=== PATIENT | male | born 1950 | race Caucasian/White ===

== ENCOUNTER → 2016-07-14 | Outpatient (CLI) | payer BC ==
[2016-07-14 10:47] LABS: ALT 70 U/L (21-72); AST 47 U/L (17-59); Cholesterol 194 mg/dL (<200); HDL Cholesterol 71 mg/dL (40-60); Triglycerides 113 mg/dL (<150)
== END | disposition home or self-care (01) ==
LOC: LABWHC1 09:29
PROVIDERS: ATTEND Internal Medicine Interventional Cardiology
DX: E78.2 Mixed hyperlipidemia (principal)
CPT/HCPCS: 36415; 80061; 84450; 84460

== ENCOUNTER 2017-01-06 11:57 | Emergency (ER) | payer BC, MEDICARE ==
[2017-01-06 12:23] VITALS: TEMP 97.9
[2017-01-06] MEDS ORDERED: SODIUM CHLORIDE 0.9% 1,000 ML IV STA (12:34)
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
[2017-01-06 13:26] LABS: Basophils % (A) 0 %; CH 30.8; CHCM 32.2; Eosinophils # (A) 0.1 k/uL (0-0.7); Eosinophils % (A) 2 %; HCT 48.7 % (39.0-53.0); HDW 2.25; HGB 15.7 gm/dL (13.0-17.5); Luc # (Auto) 0.19; Luc % (Auto) 3; Lymphocytes # (A) 2.1 k/uL (1.0-4.8); Lymphocytes % (A) 29 %; MCH 30.9 pg (25.0-35.0); MCHC 32.1 g/dL (31.0-37.0); MCV 96.1 fL (80.0-100.0); Mean Platelet Volume 7.3; Monocytes # (A) 0.5 k/uL (0-1.0); Monocytes % (A) 7 %; Neutrophils # (A) 4.4 k/uL (1.3-7.7); Neutrophils % (A) 60 %; RBC 5.07 m/uL (4.30-5.90); RDW 13.5 % (11.5-15.5); WBC 7.3 k/uL (3.8-10.6); WBC (Perox) 6.93
[2017-01-06 13:32] LABS: INR 2.3 (<1.2); Prothrombin Time 21.7 sec (9.0-12.0)
--- NOTE | 2017-01-06 13:32 | XR ---
EXAMINATION TYPE: XR elbow complete LT DATE OF EXAM: 01/06/2017 COMPARISON: NONE HISTORY: 66-year-old male with redness, pain, swelling posteriorly TECHNIQUE: 3 views FINDINGS: No acute fracture, subluxation, or dislocation. No elbow joint effusion seen. There is posterior soft tissue swelling noted. IMPRESSION: 1. No acute osseous abnormality seen. 2. Nonspecific posterior soft tissue swelling could represent contusion or cellulitis.
[2017-01-06 13:37] LABS: ALT 59 U/L (21-72); AST 25 U/L (17-59); Alkaline Phosphatase 63 U/L (38-126); Anion Gap 10 mmol/L; Blood Urea Nitrogen 16 mg/dL (9-20); C Reactive Protein 32.9 mg/L (<10.0); Calcium 10.1 mg/dL (8.4-10.2); Carbon Dioxide 27 mmol/L (22-30); Chloride 103 mmol/L (98-107); Glucose 135 mg/dL (74-99); Non-African American GFR(MDRD) >60 (>60 ml/min/1.73 sqM); Potassium 4.9 mmol/L (3.5-5.1); Sodium 140 mmol/L (137-145); Total Bilirubin 1.8 mg/dL (0.2-1.3); Total Protein 7.4 g/dL (6.3-8.2)
[2017-01-06 14:29] LABS: Erythrocyte Sedimentation Rate 6 mm/hr (0-15)
[2017-01-06] MEDS ORDERED: ceFAZolin 1,000 MG in DEXTROSE/WATER 1 50ML.BAG IVPB STA (14:45)
--- NOTE | 2017-01-06 15:24 | US ---
EXAMINATION TYPE: US venous doppler duplex UE LT DATE OF EXAM: 01/06/2017 COMPARISON: NONE CLINICAL HISTORY: 66-year-old male Pain. SIDE PERFORMED: Left FINDINGS: Grayscale, color doppler, spectral doppler imaging performed of the deep veins of the upper extremiti es. There is normal flow, compressibility and vascular waveforms. The internal jugular, subclavian, axillary, brachial, basilic, cephalic, and compared radial and ulnar veins were assessed. Left Arm: Negative for DVT IMPRESSION: No evidence for DVT within the left upper extremity.
[2017-01-06 16:02] VITALS: BP 178/95; PULSE 86; RESP 16
== END 2017-01-06 16:02 | disposition home or self-care (01) ==
LOC: EC 11:57
DX: L03.114 Cellulitis of left upper limb (principal); E11.9 Type 2 diabetes mellitus without complications; E78.5 Hyperlipidemia, unspecified; I10 Essential (primary) hypertension; I25.2 Old myocardial infarction; I48.0 Paroxysmal atrial fibrillation; Z95.5 Presence of coronary angioplasty implant and graft; Z87.891 Personal history of nicotine dependence; Z86.711 Personal history of pulmonary embolism; Z79.899 Other long term (current) drug therapy; Z88.8 Allergy status to other drugs, medicaments and biological substances
CPT/HCPCS: 99284; 36415; 80053; 85652; 83605; 85025; 85610; 86140; 87040; 73080; 93971; 96374; 96361 ×2; J0690

== ENCOUNTER 2017-06-30 17:57 | Observation (INO) | payer BC, MEDICARE ==
[2017-06-30] MEDS ORDERED: IBUPROFEN 600 MG TAB PO STA (18:39)
[2017-06-30] MEDS ORDERED: ACETAMINOPHEN TAB 500 MG TAB PO STA (18:39)
[2017-06-30] MEDS ORDERED: IPRATROPIUM-ALBUTEROL 3 ML NEB INHALATION STA (18:39)
[2017-06-30] MEDS ORDERED: SODIUM CHLORIDE 0.9% 1,000 ML IV STA ×2 (18:39→19:50)
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
[2017-06-30] MEDS ORDERED: METOPROLOL TARTRATE 5 MG/5 ML VIAL IVP STA (19:21)
[2017-06-30 19:26] LABS: Appearance,Urine Clear (Clear); Bacteria,Urine Rare /hpf; Bilirubin,Urine Negative (Negative); Blood,Urine Negative (Negative); Color,Urine Yellow; Glucose,Urine (UA) Trace (Negative); Hyaline Casts,Urine 1 /lpf (0-2); Ketones,Urine Negative (Negative); Leukocyte Esterase,Urine Trace (Negative); Mucus,Urine Rare /hpf; Nitrite,Urine Negative (Negative); PH, Urine 6.5 (5.0-8.0); Protein,Urine Trace (Negative); RBC,Urine 3 /hpf (0-5); Specific Gravity,Urine 1.021 (1.001-1.035); Squamous Epithelial Cell,Urine <1 /hpf (0-4); WBC,Urine 2 /hpf (0-5)
[2017-06-30 19:29] LABS: Basophils % (A) 0 %; Eosinophils # (A) 0.1 k/uL (0-0.7); Eosinophils % (A) 1 %; HCT 45.3 % (39.0-53.0); HGB 15.6 gm/dL (13.0-17.5); Lymphocytes # (A) 1.1 k/uL (1.0-4.8); Lymphocytes % (A) 22 %; MCH 30.1 pg (25.0-35.0); MCHC 34.4 g/dL (31.0-37.0); MCV 87.6 fL (80.0-100.0); Mean Platelet Volume 7.7; Monocytes # (A) 0.3 k/uL (0-1.0); Monocytes % (A) 6 %; Neutrophils # (A) 3.4 k/uL (1.3-7.7); Neutrophils % (A) 69 %; Platelet Count 150 k/uL (150-450); RBC 5.18 m/uL (4.30-5.90); RDW 13.7 % (11.5-15.5); WBC 4.8 k/uL (3.8-10.6)
[2017-06-30 19:33] LABS: Albumin 4.2 g/dL (3.5-5.0); Calcium 9.8 mg/dL (8.4-10.2); Potassium 4.4 mmol/L (3.5-5.1); Total Bilirubin 1.5 mg/dL (0.2-1.3); Total Protein 7.2 g/dL (6.3-8.2)
[2017-06-30 19:35] LABS: Partial Thromboplastin Time 28.7 sec (22.0-30.0)
[2017-06-30 19:41] LABS: Creatine Kinase 67 U/L (55-170); INR 2.1 (<1.2); Prothrombin Time 19.3 sec (9.0-12.0)
[2017-06-30] MEDS ORDERED: OSELTAMIVIR 75 MG CAP PO STA (19:41)
[2017-06-30] MEDS ORDERED: SODIUM CHLORIDE 0.9% 500 ML IV STA (19:50)
--- NOTE | 2017-06-30 19:51 | XR ---
EXAMINATION TYPE: XR chest 2V DATE OF EXAM: 06/30/2017 COMPARISON: 03/03/2015 HISTORY: Shortness of breath TECHNIQUE: Frontal and lateral views of the chest are obtained. FINDINGS: Scattered senescent parenchymal changes noted. No evidence for infiltrate. No evidence for atelectasis. Heart size is stable. Mediastinal structures are stable and grossly unremarkable. No evidence for hilar prominence. Degenerative changes dorsal spine. IMPRESSION: 1. No evidence for acute pulmonary disease.
[2017-06-30 19:54] LABS: Creatine Kinase MB 0.2 ng/mL (0.0-2.4); Troponin I <0.012 ng/mL (0.000-0.034)
[2017-06-30] MEDS ORDERED: NALOXONE 0.4 MG/ML 1 ML VIAL IV PRN (19:54)
[2017-06-30] MEDS ORDERED: ACETAMINOPHEN TAB 325 MG TAB PO PRN (19:54)
[2017-06-30] MEDS ORDERED: IBUPROFEN 400 MG TAB PO PRN (19:54)
[2017-06-30] MEDS ORDERED: NITROGLYCERIN SL TABS 0.4 MG TAB SUBLINGUAL PRN (19:57)
[2017-06-30] MEDS ORDERED: IPRATROPIUM-ALBUTEROL 3 ML NEB INHALATION PRN (20:07)
[2017-06-30 21:14] LABS: Glucose,Whole Blood 126 mg/dL (75-99)
[2017-06-30 22:21] VITALS: BMI 32.1
--- NOTE | 2017-06-30 23:52 | HP ---
HISTORY AND PHYSICAL DATE OF ADMISSION: 06/30/2017 PRESENTING COMPLAINT: Weak, tired, fever. HISTORY OF PRESENTING COMPLAINT: This is a very pleasant 67-year-old patient of Dr. Espinoza. 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 Chronic stable medical conditions include diabetes, hypertension, hyperlipidemia and coronary artery disease with stent 2 years ago. The patient did have a pulmonary embolism in 2012. Patient yesterday in a short span became rather weak, tired, fever, sweating, cough, headache, rundown. Dizzy, thought he was going to pass out. Heart was racing a bit. In the ER he was found to have a fever of 101.3 and heart was racing up to 130s. Influenza A came back positive. The patient was put on Tamiflu, and I believe Cardiology ordered some IV Lopressor. Patient's is present at the bedside. Patient rather feels tired and exhausted. REVIEW OF SYSTEMS: CONSTITUTIONAL: Weak, tired. Fever, chills. HEENT: None. RESPIRATORY: Cough. CARDIOVASCULAR: Heart racing. GASTROINTESTINAL: None. GENITOURINARY: None. MUSCULOSKELETAL: Achiness in the muscles. DERMATOLOGICAL: None. HEMATOLOGICAL: None. LYMPHATICS: None. PSYCHIATRY: None. NEUROLOGICAL: None. PAST MEDICAL HISTORY: 1. Atrial fibrillation. 2. Diabetes mellitus, type 2. 3. Hypertension. 4. Hyperlipidemia. 5. Myocardial infarction. 6. Coronary artery disease with stent 2 years ago. 7. Pulmonary embolism in 2012. PAST SURGICAL HISTORY: 1. Cholecystectomy. 2. Cardiac catheterization with stent. 3. Open reduction of left ankle fracture. SOCIAL HISTORY: Does not smoke. No alcohol. . FAMILY HISTORY: Pulmonary embolism. Father of a heart attack at age of 53. HOME MEDICATIONS: 1. Pioglitazone 15 mg p.o. daily. 2. Nitrostat 0.4 sublingually q.5 p.r.n. 3. Lopressor 25 p.o. b.i.d. 4. Magnesium oxide 400 mg p.o. daily. 5. Augmentin 1 tablet p.o. q.12. 6. Claritin 10 mg p.o. daily. 7. Coumadin 5 mg p.o. Tuesday, Wednesdays. 8. Metformin ER 500 mg p.o. t.i.d. 9. Coumadin 2.5 mg on Tuesday, Tuesday, , Tuesday, Tuesday. 10.Prinivil 20 mg p.o. daily. 11.Pepcid 40 mg p.o. daily. 12.Vitamin D3 2000 units p.o. daily. 13.Lipitor 20 mg p.o. q.72 hours. 14.Aspirin 81 mg p.o. daily. ALLERGIES: JANUVIA. PHYSICAL EXAMINATION: VITAL SIGNS ON PRESENTATION: Temperature 101.3, pulse 116, respiration 18, blood pressure 148/94, pulse ox 95% on room air. GENERAL APPEARANCE: Well built; BMI 32.1. Sitting up, tired-appearing. EYES: Pupils equal. Conjunctivae normal. HEENT: External appearance of nose and ears normal. Oral cavity normal. NECK: JVD not raised. Mass not palpable. RESPIRATORY: Effort normal. LUNGS: Slightly decreased breath sounds. CARDIOVASCULAR: Heart sounds irregular. No edema. ABDOMEN: Soft, nontender. Liver and spleen not palpable. LYMPHATIC: No lymph node palpable in neck or axillae. PSYCHIATRY: Alert and oriented x3. Mood and affect normal. NEUROLOGICAL: Pupils equal. Cranial nerves grossly intact. Power and sensation grossly intact. INVESTIGATIONS: White count 4.8, hemoglobin 14.6, INR 2.1, potassium 4.4. Troponin negative. Influenza A RNA positive. Chest x-ray reviewed; it shows some scattered infiltrates. EKG shows atrial flutter. ASSESSMENT: 1. Acute influenza A with pneumonitis causing sepsis, present on admission. 2. Persistent atrial flutter with rapid ventricular rate, probably precipitated by acute influenza, uncontrolled on admission. 3. Diabetes mellitus, type 2, chronically on oral hypoglycemic. 4. Essential hypertension. 5. Hyperlipidemia. 6. History of pulmonary embolism in 2012. 7. Coronary artery disease with stent 2 years ago. 8. Obesity; body mass index 32.1. PLAN: Home medications are resumed. Patient is put on Tamiflu. Patient will be given one dose of IV Lopressor per Cardiology, who has been consulted. Patient will be given IV fluids. Care was discussed with the patient and his at the bedside. Questions were answered. MMODL / IJN: [id number] /
[2017-07-01] MEDS ORDERED: IPRATROPIUM-ALBUTEROL 3 ML NEB INHALATION SCH
[2017-07-01] MEDS ORDERED: methylPREDNISolone SOD SUCCI 125 MG/2 ML VIAL IV SCH
[2017-07-01 01:24] LABS: Creatine Kinase 65 U/L (55-170)
[2017-07-01 01:38] LABS: Creatine Kinase MB 0.3 ng/mL (0.0-2.4); Troponin I <0.012 ng/mL (0.000-0.034)
[2017-07-01 05:52] LABS: Glucose,Whole Blood 119 mg/dL (75-99)
[2017-07-01] MEDS: METOPROLOL TARTRATE 25 MG TAB PO SCH ×2 (05:58→16:11)
[2017-07-01] MEDS: metFORMIN 500 MG TAB PO SCH ×3 (05:58→16:11)
[2017-07-01 06:38] LABS: Basophils % (A) 0 %; Eosinophils # (A) 0.1 k/uL (0-0.7); Eosinophils % (A) 2 %; HCT 42.5 % (39.0-53.0); HGB 13.6 gm/dL (13.0-17.5); Lymphocytes # (A) 0.9 k/uL (1.0-4.8); Lymphocytes % (A) 27 %; MCH 29.2 pg (25.0-35.0); MCV 91.1 fL (80.0-100.0); Mean Platelet Volume 7.9; Monocytes # (A) 0.2 k/uL (0-1.0); Monocytes % (A) 8 %; Neutrophils # (A) 1.9 k/uL (1.3-7.7); Neutrophils % (A) 61 %; Platelet Count 129 k/uL (150-450); RBC 4.67 m/uL (4.30-5.90); RDW 13.7 % (11.5-15.5); WBC 3.2 k/uL (3.8-10.6)
[2017-07-01 06:42] LABS: INR 2.1 (<1.2)
[2017-07-01 06:56] LABS: Albumin 3.5 g/dL (3.5-5.0); Calcium 8.9 mg/dL (8.4-10.2); Potassium 4.5 mmol/L (3.5-5.1); Total Bilirubin 1.5 mg/dL (0.2-1.3); Total Protein 6.1 g/dL (6.3-8.2)
[2017-07-01 07:03] LABS: Creatine Kinase 77 U/L (55-170)
[2017-07-01 07:14] LABS: Creatine Kinase MB 0.5 ng/mL (0.0-2.4); Troponin I <0.012 ng/mL (0.000-0.034)
[2017-07-01] MEDS: OSELTAMIVIR 75 MG CAP PO SCH ×2 (07:49→20:41)
[2017-07-01] MEDS: ASPIRIN 81 MG PO SCH (07:49)
[2017-07-01] MEDS: PIOGLITAZONE 15 MG TAB PO SCH (07:50)
[2017-07-01] MEDS: MAGNESIUM OXIDE 400 MG TAB PO SCH (07:50)
[2017-07-01] MEDS: CHOLECALCIFEROL 1,000 UNIT TAB PO SCH (07:50)
[2017-07-01] MEDS: FAMOTIDINE 20 MG TAB PO SCH (07:50)
[2017-07-01] MEDS: LORATADINE 10 MG TAB PO SCH (07:50)
[2017-07-01] MEDS ORDERED: LISINOPRIL 20 MG TAB PO SCH (09:00)
--- NOTE | 2017-07-01 11:44 | CONS ---
CONSULTATION CHIEF COMPLAINT: Atrial fibrillation. This is a 67-year-old gentleman with history of chronic atrial fibrillation, hypertension, dyslipidemia, coronary artery disease and type 2 diabetes who presents to hospital with flu-like illness. He has been having symptoms of fatigue, fever, sweating, cough, dizziness for the last few days. Came to the ER where his influenza A came back positive. He was febrile and he was also in atrial fibrillation with poorly- controlled ventricular rate. Has received Tamiflu and at the time of my evaluation, he feels better. Heart rate is better controlled. He is on Coumadin. PAST MEDICAL HISTORY: Significant for chronic atrial fibrillation, diabetes, hypertension, dyslipidemia, coronary artery disease. PAST SURGICAL HISTORY: Significant for cholecystectomy, repair of the left ankle fracture. SOCIAL HISTORY: Negative for smoking, EtOH abuse, or drug abuse. FAMILY HISTORY: Significant for premature coronary artery disease. MEDICATIONS: At home include Lopressor 25 b.i.d., Claritin, Coumadin, metformin, Prinivil, Pepcid, Lipitor, aspirin, Januvia. REVIEW OF SYSTEMS: HEENT is significant for a runny nose, headache and feeling stuffy. CARDIAC: As described above. RESPIRATORY: Negative. GI: Negative. GENITOURINARY: Negative. ALLERGY/IMMUNOLOGY: Negative. SKIN: Negative. MUSCULOSKELETAL: Significant for arthralgias, fatigue and tiredness. PSYCHIC READER: Negative. PSYCHOSOCIAL: Negative. DERM: Negative. CONSTITUTIONAL: As described above. Rest of the system review is not relevant. On exam, he is comfortable at rest. Heart rate is 80 beats per minute, blood pressure is 132/74, respiratory rate is 18, O2 saturation is 97% on room air. There is no jugular venous distention. Chest exam revealed good air entry bilaterally. Heart exam was of first and second heart sounds. No gallop. Abdomen is soft. Exam of extremities did not reveal edema. Peripheral pulses are felt. LABS: Show that 3 sets of troponins are negative. Creatinine is 1, potassium is 4.5, hemoglobin is normal at 15.6. INR is therapeutic at 2.1. ASSESSMENT: 1. Chronic atrial fibrillation with poorly controlled ventricular rate. 2. Influenza A. 3. Coronary artery disease, status post angioplasty. 4. Hypertension. 5. Diabetes. PLAN: Patient is doing better. Patient is stable to be discharged home. He can keep his outpatient appointment with Dr. Jasso that he has for the first week of July. MMKAYAL / JOSEPN: [id number] /
--- NOTE | 2017-07-01 12:01 | ECHOF ---
Referral Reason:AF w/RVR MEASUREMENTS -------- HEIGHT: 195.6 cm WEIGHT: 124.7 kg BP: 132/74 RVIDd: 2.8 cm (< 3.3) IVSd: 1.4 cm (0.6 - 1.1) LVIDd: 5.3 cm (3.9 - 5.3) LVPWd: 1.3 cm (0.6 - 1.1) IVSs: 2.0 cm LVIDs: 4.1 cm LVPWs: 1.9 cm LA Diam: 5.0 cm (2.7 - 3.8) LAESV Index (A-L): 35.80 ml/m Ao Diam: 3.4 cm (2.0 - 3.7) AV Cusp: 2.3 cm (1.5 - 2.6) MV EXCURSION: 16.659 mm (> 18.000) MV EF SLOPE: 207 mm/s (70 - 150) EPSS: 0.8 cm FINDINGS -------- Atrial fibrillation. This was a technically adequate study. The left ventricular size is normal. There is moderate concentric left ventricular hypertrophy. O verall left ventricular systolic function is mildly impaired with, an EF between 45 - 50 %. Basal i nferior LV wall motion is hypokinetic. Basal inferoseptal LV wall motion is hypokinetic. The right ventricle is normal in size. LA is moderately dilated 34-39 ml/m2 The right atrium is normal in size. The aortic valve is trileaflet and appears structurally normal. Mild mitral annular calcification present. Mild mitral regurgitation is present. The tricuspid valve appears structurally normal. Trace/mild (physiologic) pulmonic regurgitation. The aortic root size is normal. IVC Not well visulized. There is no pericardial effusion. CONCLUSIONS -------- 1. Atrial fibrillation. 2. This was a technically adequate study. 3. The left ventricular size is normal. 4. There is moderate concentric left ventricular hypertrophy. 5. Basal inferior LV wall motion is hypokinetic. 6. Basal inferoseptal LV wall motion is hypokinetic. 7. The right ventricle is normal in size. 8. LA is moderately dilated 34-39 ml/m2 9. The right atrium is normal in size. 10. The aortic valve is trileaflet and appears structurally normal. 11. Mild mitral annular calcification present. 12. Mild mitral regurgitation is present. 13. The tricuspid valve appears structurally normal. 14. Trace/mild (physiologic) pulmonic regurgitation. 15. The aortic root size is normal. 16. IVC Not well visulized. 17. There is no pericardial effusion. [employer] SUPERVISOR: Krista Perez RDCS
[2017-07-01 12:35] LABS: Glucose,Whole Blood 134 mg/dL (75-99)
[2017-07-01] MEDS: WARFARIN 2.5 MG TAB PO SCH (16:11)
[2017-07-01 17:04] LABS: Glucose,Whole Blood 117 mg/dL (75-99)
--- NOTE | 2017-07-01 19:14 | PN ---
PROGRESS NOTE DATE OF SERVICE: 07/01/17. PRESENTING COMPLAINT: Weak, tired. INTERVAL HISTORY: This patient presents with acute influenza A with pneumonitis causing sepsis present on admission and atrial flutter fibrillation. I saw this patient earlier today. Feels a bit better, though still tired, run down. Did eat a bit. Heart rate started to come down. REVIEW OF SYSTEMS: Done for constitutional, cardiovascular, GI, pulmonary; relevant findings as above. CURRENT MEDICATIONS: Reviewed that include Lopressor, Tamiflu, Coumadin. PHYSICAL EXAMINATION: Temperature 99.4, pulse 83, respiratory 18, blood pressure 130/74, pulse ox 97% on room air. GENERAL APPEARANCE: Sitting up, still tired, but shade better than yesterday. EYES: Pupils equal. Conjunctivae normal. HEENT: External nose and ears normal. Oral cavity normal NECK: JVD not raised. Mass not palpable. RESPIRATORY: Effort, lungs slightly decreased breath sounds. CARDIOVASCULAR: Heart sounds irregular. No edema. ABDOMEN: Soft, nontender. Liver and spleen not palpable. PSYCHIATRY: Alert and oriented x3. Mood and affect normal. INVESTIGATIONS: White count 3.2 and 2.1, BUN and creatinine are normal. ASSESSMENT: 1. Acute influenza A with pneumonitis causing sepsis present on admission with some clinical improvement. 2. Persistent atrial flutter fibrillation with rapid ventricular rate, present on admission, now getting better. 3. Diabetes mellitus type 2, chronically on oral hypoglycemic. 4. Essential hypertension. 5. Hyperlipidemia. 6. History of pulmonary embolism in 2012. 7. Coronary artery disease with stents 2 years ago. 8. Obesity; BMI 32.1. PLAN: Continue current medication and treatment plan. Later this evening patient's blood pressure became a bit high and had additional lisinopril in the evening. Earlier care was discussed with the patient. MMODL / IJN: [id number] /
[2017-07-01 20:47] LABS: Glucose,Whole Blood 125 mg/dL (75-99)
[2017-07-02] MEDS: metFORMIN 500 MG TAB PO SCH ×3 (06:47→17:58)
[2017-07-02] MEDS: METOPROLOL TARTRATE 25 MG TAB PO SCH ×2 (06:48→17:57)
[2017-07-02 06:55] LABS: INR 1.8 (<1.2); Prothrombin Time 16.3 sec (9.0-12.0)
[2017-07-02 07:04] LABS: Glucose,Whole Blood 138 mg/dL (75-99)
[2017-07-02] MEDS: PIOGLITAZONE 15 MG TAB PO SCH (09:22)
[2017-07-02] MEDS: LORATADINE 10 MG TAB PO SCH (09:22)
[2017-07-02] MEDS: MAGNESIUM OXIDE 400 MG TAB PO SCH (09:22)
[2017-07-02] MEDS: ASPIRIN 81 MG PO SCH (09:22)
[2017-07-02] MEDS: OSELTAMIVIR 75 MG CAP PO SCH ×2 (09:23→21:08)
[2017-07-02] MEDS: FAMOTIDINE 20 MG TAB PO SCH (09:39)
[2017-07-02 12:13] LABS: Glucose,Whole Blood 155 mg/dL (75-99)
[2017-07-02] MEDS: CHOLECALCIFEROL 1,000 UNIT TAB PO SCH (12:24)
[2017-07-02 16:46] LABS: Glucose,Whole Blood 148 mg/dL (75-99)
[2017-07-02] MEDS: WARFARIN 2.5 MG TAB PO SCH (17:58)
--- NOTE | 2017-07-02 18:30 | PN ---
PROGRESS NOTE DATE OF SERVICE: 07/02/2017 PRESENTING COMPLAINT: Weak, tired. INTERVAL HISTORY: Patient presented with acute influenza A with pneumonitis causing sepsis, present on admission in atrial flutter/fibrillation since yesterday. Patient feeling better, actually walked to the bathroom. Heart rate was slightly up overnight because of weakness. Patient nearly had a fall last night, he states but feeling better this morning. REVIEW OF SYSTEMS: Done for constitutional, cardiovascular, GI, pulmonary; relevant findings as above. CURRENT MEDICATIONS: Reviewed that include Tamiflu, Coumadin, Lopressor 25 mg b.i.d. PHYSICAL EXAMINATION: Temperature 98.4, pulse 83, respiratory 18, blood pressure 130/84, pulse ox 95% on room air. GENERAL APPEARANCE: Propped up in bed, awake, looking better. EYES: Pupils equal, conjunctivae are normal. HEENT: External appearance of nose and ears normal, oral cavity normal. NECK: JVD not raised. Mass not palpable. Respiratory effort increased. Lungs improved air entry. CARDIOVASCULAR: Heart sounds irregular, no edema. ABDOMEN: Soft, nontender. Liver and spleen not palpable. PSYCHIATRY: Alert and oriented x3. Mood and affect normal. INVESTIGATIONS: INR 1.8. Accu-Cheks noted. ASSESSMENT: 1. Acute influenza A with pneumonitis causing sepsis on admission with clinical improvement. 2. Persistent atrial flutter/fibrillation. Heart rate better controlled. 3. Diabetes mellitus type 2, chronically on oral hypoglycemic. 4. Essential hypertension. 5. Hyperlipidemia. 6. History of pulmonary embolism in 2012, chronically on Coumadin. 7. Coronary artery disease with stents 2 years ago. 8. Obesity; body mass index 32.1. PLAN: Continue current medication and treatment plan. Encourage the patient to ambulate. See how he does by tomorrow. MMODL / IJN: [id number] /
[2017-07-02] MEDS ORDERED: LISINOPRIL 20 MG TAB PO SCH (21:00)
[2017-07-02 21:06] LABS: Glucose,Whole Blood 141 mg/dL (75-99)
[2017-07-03 07:35] VITALS: RESP 24
[2017-07-03] MEDS: FAMOTIDINE 20 MG TAB PO SCH (08:42)
[2017-07-03] MEDS: ASPIRIN 81 MG PO SCH (08:43)
[2017-07-03] MEDS: metFORMIN 500 MG TAB PO SCH ×3 (08:43→16:56)
[2017-07-03] MEDS: METOPROLOL TARTRATE 25 MG TAB PO SCH ×2 (08:43→16:55)
[2017-07-03] MEDS: LORATADINE 10 MG TAB PO SCH (08:43)
[2017-07-03] MEDS: MAGNESIUM OXIDE 400 MG TAB PO SCH (08:43)
[2017-07-03] MEDS: OSELTAMIVIR 75 MG CAP PO SCH (08:44)
[2017-07-03] MEDS: PIOGLITAZONE 15 MG TAB PO SCH (08:44)
[2017-07-03] MEDS ORDERED: ATORVASTATIN 20 MG TAB PO SCH (09:00)
[2017-07-03 09:31] LABS: INR 1.7 (<1.2); Prothrombin Time 15.3 sec (9.0-12.0)
[2017-07-03 11:23] LABS: Glucose,Whole Blood 140 mg/dL (75-99)
[2017-07-03] MEDS: CHOLECALCIFEROL 1,000 UNIT TAB PO SCH (11:43)
[2017-07-03 14:46] VITALS: BP 137/72; PULSE 88; TEMP 97
[2017-07-03] MEDS: WARFARIN 2.5 MG TAB PO SCH (16:55)
--- NOTE | 2017-07-04 05:37 | DS ---
DISCHARGE SUMMARY DATE OF ADMISSION: 06/30/17 DATE OF DISCHARGE: July 03, 2017. FINAL DIAGNOSES: 1. Acute influenza with pneumonitis causing sepsis on admission. 2. Persistent atrial flutter fibrillation heart rate uncontrolled on presentation. 3. Diabetes mellitus type 2, chronically on oral hypoglycemic. 4. Essential hypertension. 5. Hyperlipidemia. 6. History of pulmonary embolism chronically on Coumadin. 7. Coronary artery disease with stents 2 years ago. 8. Obesity; BMI 32.1. HOSPITAL COURSE: This patient feeling weak, tired, run down, found to have influenza with pneumonitis responded really well to Tamiflu. Also had persistent atrial flutter fibrillation. did come down and INR was therapeutic. INR was followed. PHYSICAL EXAMINATION: On examination, lungs fair entry. Cardiovascular first and second sounds normal. Patient is up and about. CONSULTATION: Dr. Greg Alvarez from Cardiology. Care was discussed in detail with the patient and . Questions were answered. DC planning more than 35 minutes. DISCHARGE MEDICATIONS: 1. Lipitor 20 mg every 72 hours. 2. Lopressor 25 p.o. b.i.d. 3. Coumadin 2.5 mg on Tuesday, Tuesday, , Tuesday, Tuesday. 4. Vitamin D3 2000 units p.o. daily. 5. Nitrostat 0.4 sublingual q.5 p.r.n. 6. Actos 50 mg p.o. daily. 7. Metformin ER 500 mg p.o. t.i.d. 8. Aspirin 81 mg p.o. daily. 9. Coumadin 5 mg on Tuesday, Tuesday. 10.Pepcid 40 mg a day. 11.Magnesium oxide 800 mg daily. 12.Prinivil 20 mg p.o. daily. 13.Claritin 10 mg p.o. daily. 14.Tamiflu 75 mg p.o. every 12 hours, 10 capsules. Followup: The patient is to follow up with his java j2ee lead in [address] Espinoza in [address] Espinoza. MMKAYAL / MILA: [id number] /
[2017-07-04] MEDS ORDERED: WARFARIN 5 MG TAB PO SCH (18:00)
== END 2017-07-03 17:12 | disposition home or self-care (01) ==
LOC: EC 17:57 → 6SEL 20:08 → 4MS4W 07-03 04:13
PROVIDERS: ADMIT Hospitalist; ATTEND Hospitalist
DX: J10.00 Influenza due to other identified influenza virus with unspecified type of pneumonia (principal); A41.89 Other specified sepsis; E11.9 Type 2 diabetes mellitus without complications; I10 Essential (primary) hypertension; E78.5 Hyperlipidemia, unspecified; I25.10 Atherosclerotic heart disease of native coronary artery without angina pectoris; I48.1 Persistent atrial fibrillation; I48.92 Unspecified atrial flutter; Z68.32 Body mass index [BMI] 32.0-32.9, adult; E66.9 Obesity, unspecified; Z79.01 Long term (current) use of anticoagulants; I25.2 Old myocardial infarction; Z95.5 Presence of coronary angioplasty implant and graft; Z86.711 Personal history of pulmonary embolism; Z82.49 Family history of ischemic heart disease and other diseases of the circulatory system
CPT/HCPCS: 96361 ×3; 96374 ×2; 99284 ×2; 36415; 94640; 93005; 93306; 80053 ×2; 82550 ×2; 82553 ×2; 83605; 84484 ×2; 85025 ×2; 85610 ×4; 85730; 81001; 87040; 87086; 87502; 71046; G0378 ×5

== ENCOUNTER → 2017-12-08 | Outpatient (CLI) | payer BC ==
--- NOTE | 2017-12-08 15:43 | SFUN ---
SLEEP CENTER FOLLOW UP NOTE DATE OF SERVICE: 12/08/2017. 67-year-old gentleman has been followed in the Sleep Center for treatment of obstructive sleep apnea-hypopnea syndrome. Recently patient developed some problems with the using of his CPAP unit because he developed more difficulties to breathe with his unit. By his records, he is supposed to use his CPAP equipment with a pressure of 7 cm of water. REM started at 4 for 20 minutes, but again for the last 2 weeks, the patient developed feeling that as soon as he put mask on, he does have difficulties to breathe with that. I checked his CPAP unit. CPAP pressure is 7 cm of water. EPR is at 2, usage is 29 out of 30 nights according to the machine and more than 4 hours, 28 out of 30 nights, although the patient indicated that for last several days he did not use the machine. We do not see that on the screen. Leak is 30 L/minute. Apnea-hypopnea index reading for the last month 6.9, for the last 6 months, 6.0. Sometimes patient feels dryness in his mouth in the morning. MEDICATIONS: Metformin, metoprolol, aspirin, Lipitor, Plavix, lisinopril, Nitrostat. PHYSICAL EXAM: Patient in no distress. BP 136/85, HR 74, RR 16, height 6 inches 3, weight 273, BMI 34.1. Temperature 97.5, oxygen saturation on room air 98%. Oropharynx moderately low position of soft palate. HEART: S1, S2 irregularly irregular. Abdomen slightly obese. Extremities 1+ ankle edema. Neck: Supple, no JVD. Thyroid is not palpable. LUNGS Clear to percussion and to auscultation. Good air exchange. No wheezing or rhonchi. ABDOMEN : Obese. Soft and nontender. Bowel sounds are present. No organomegaly appreciated. CLOTH CARRIER: Awake, alert, and oriented X3. Cranial nerves 2 to 7 intact. There is no fasciculation or atrophy. noted. No focal deficits observed. IMPRESSION: 1. Obstructive sleep apnea-hypopnea syndrome, patient demonstrated practically 100% compliance with treatment, benefitting from treatment, but recently developed some problems related to the pressure. 2. Hypertension. 3. Coronary artery disease, status post stent insertion. 4. Atrial fibrillation. 5. Diabetes mellitus. 6. Hypertension. 7. Hyperlipidemia. 8. History of pulmonary embolism in 2012. 9. Status post cholecystectomy. 10.Status post hernia repair. PLAN: 1. I adjusted EPR to 3. 2. We checked by manometer pressure in the machine and it is looks okay. 3. I increased time of ramp to 40 minutes instead of 20 minutes. 4. We discussed possibility to use chinstrap because I believe that patient possibly opening his mouth during the sleep. 5. Patient should continue to use his CPAP equipment every night. 6. No driving if feeling sleepiness. 7. If the patient will have difficulties to tolerate CPAP, we may consider to go to BiPAP. Thank you very much for allowing me to participate in management of your patient. Sincerely, Jovanny Means MD, PhD, FAASM Diplomat of [place] Board of Medical Specialties [place] Board of Internal Medicine Media Associate of [facility] MARCELLA / MILA: [id number] /
== END | disposition home or self-care (01) ==
LOC: SLEEP 13:48
PROVIDERS: ATTEND Internal Medicine
DX: G47.33 Obstructive sleep apnea (adult) (pediatric) (principal); I10 Essential (primary) hypertension; I25.10 Atherosclerotic heart disease of native coronary artery without angina pectoris; I48.91 Unspecified atrial fibrillation; E11.9 Type 2 diabetes mellitus without complications; E78.5 Hyperlipidemia, unspecified; Z86.711 Personal history of pulmonary embolism; Z95.5 Presence of coronary angioplasty implant and graft; Z90.49 Acquired absence of other specified parts of digestive tract; Z79.84 Long term (current) use of oral hypoglycemic drugs; Z79.82 Long term (current) use of aspirin; Z79.899 Other long term (current) drug therapy; Z79.02 Long term (current) use of antithrombotics/antiplatelets; Z98.890 Other specified postprocedural states

== ENCOUNTER → 2018-02-24 | Outpatient (CLI) | payer MEDICARE, BC ==
[2018-02-24 16:29] LABS: LDL Cholesterol,Calculated 110.2 mg/dL (0.0-131.0); VLDL Calculation 21.8 mg/dL (5.00-40.00)
== END | disposition home or self-care (01) ==
LOC: LABWHC1 10:50
PROVIDERS: ATTEND Nurse Practitioner Adult Health
DX: E78.2 Mixed hyperlipidemia (principal)
CPT/HCPCS: 36415; 80061; 84450; 84460

== ENCOUNTER → 2018-04-13 | Outpatient (CLI) | payer MEDICARE, BC ==
--- NOTE | 2018-04-13 15:52 | PN ---
PROGRESS NOTE DATE OF SERVICE: 04/13/2018 This patient is a 68-year-old gentleman who has been followed in Sleep Center for treatment of obstructive sleep apnea-hypopnea syndrome. The patient has continued to use his CPAP equipment without significant problems related to mask fitting, pressure and humidification. I checked his CPAP unit. CPAP pressure is 7 cm of water. Usage is 23 out of 30 nights for more than 4 hours with average usage 6.9 hours. Leak is 28 L/minute, which is borderline. Apnea-hypopnea index is 7.7. [place] Sleepiness Scale today is 7. PHYSICAL EXAMINATION: GENERAL: A pleasant patient in no distress. VITAL SIGNS: BP on the right arm 205/118 and left arm 182/94. No shortness of breath. No chest pain. Heart rate 83, irregular, temperature 97.9, height 6 feet 4 inches, weight 270.6, body mass index 32.8. Oxygen saturation at room air 98%. HEENT: PERRLA, EOMI. Evaluation of oropharynx showed tongue protrudes midline. Moderately low position of soft palate. NECK: Supple. No JVD. Thyroid is not palpable. LUNGS: Clear to percussion and to auscultation. Good air exchange. No wheezing or rhonchi. HEART: S1, S2. Irregularly irregular. ABDOMEN: Slightly obese. EXTREMITIES: No clubbing or cyanosis. SALES SUPPORT REP: Awake, alert, and oriented X3. Cranial nerves 2 to 7 intact. There is no fasciculation or atrophy. noted. No focal deficits observed. IMPRESSION: 1. Obstructive sleep apnea-hypopnea syndrome. Patient demonstrated acceptable compliance, benefitting from treatment. 2. Hypertension. 3. Coronary artery disease, status post stent insertion. 4. Atrial fibrillation. 5. Diabetes mellitus. 6. Hyperlipidemia. 7. History of pulmonary embolism in 2012. 8. Status post cholecystectomy. 9. Status post hernia repair. PLAN: 1. I will change regimen in the machine to automatic regimen, ranging the pressure from 5 to maximum of 12. 2. Patient will continue to use CPAP equipment every night for the whole night. 3. Watching and losing weight. 4. Sleep hygiene with regular time in bed for at least 8 hours. 5. No driving if feeling any sleepiness. Thank you very much for allowing me to participate in the management of your patient. Sincerely, Jovanny Means MD, PhD, FAASM Diplomat of [place] Board of Medical Specialties [place] Board of Internal Medicine Metal Moulder of [facility] [place] MMODL / JOSEPN: [id number] /
== END ==
LOC: SLEEP 13:50
PROVIDERS: ATTEND Internal Medicine
DX: G47.33 Obstructive sleep apnea (adult) (pediatric) (principal); I10 Essential (primary) hypertension; I25.10 Atherosclerotic heart disease of native coronary artery without angina pectoris; I48.91 Unspecified atrial fibrillation; E11.9 Type 2 diabetes mellitus without complications; E78.5 Hyperlipidemia, unspecified; Z86.711 Personal history of pulmonary embolism; Z90.49 Acquired absence of other specified parts of digestive tract; Z98.890 Other specified postprocedural states; Z95.5 Presence of coronary angioplasty implant and graft; Z99.89 Dependence on other enabling machines and devices

== ENCOUNTER → 2018-06-28 | Outpatient (CLI) | payer MEDICARE, BC ==
--- NOTE | 2018-06-29 08:28 | CT ---
EXAMINATION TYPE: CT chest w con DATE OF EXAM: 06/28/2018 COMPARISON: 03/22/2016 HISTORY: neoplasm of mediastinum CT DLP: 634.5 mGycm. Automated Exposure Control for Dose Reduction was Utilized. TECHNIQUE: CT scan of the thorax is performed following with IV Contrast, patient injected with 100 mL of Isovue 300. FINDINGS: LUNGS: The lungs are grossly clear, there is no concerning parenchymal mass or nodule identified. Ba ndlike linear pleural parenchymal scarring is seen at the right lung base. This is progressed from th e prior 2015. Other areas of pleural-parenchymal scarring of also progressed from the prior. There is no pleural effusion or pneumothorax seen. The tracheobronchial tree is patent. MEDIASTINUM: There is decrease in size of the right paraesophageal lymph node previously measuring 1. 4 cm and currently measuring 1.1 cm measured on series 3 image 44 with a fatty hilum on image 45. No other enlarged mediastinal lymph nodes are seen. Although the main pulmonary artery is nonenlarged th ere is enlargement of the right main pulmonary artery measuring 3.3 cm and left measuring 3.0 cm that may clinically correlate with pulmonary arterial hypertension. Moderate coronary artery calcificatio ns predominate within the left anterior descending coronary artery. No pericardial effusion is seen. Heart is mildly enlarged. Normal variant direct origin of the left vertebral artery from the aortic a rch is incidentally seen. OTHER: Gallbladder is surgically absent. 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 The left adr enal gland displacing low-density 1.5 cm nodule compatible with a benign adrenal adenoma. Left renal cyst has markedly decreased in the interim measuring 1.8 cm. Mild multilevel degenerative changes of the spine are noted. IMPRESSION: 1. Decrease in size of the paraesophageal lymph node currently measuring 1.1 cm previously measuring 1.4 cm. This is adjacent to a partial intrathoracic stomach and could be reactive as this does contai n a fatty hilum. Endoscopy could be considered to evaluate the distal esophagus and partial intrathor acic stomach if there is further concern. 2. Progressive bibasilar bandlike scarring in comparison to the prior of 2015. No findings to suggest idiopathic pulmonary fibrosis.
== END | disposition home or self-care (01) ==
LOC: RADCTMAIN 16:21
PROVIDERS: ATTEND Internal Medicine
DX: R22.2 Localized swelling, mass and lump, trunk (principal)
CPT/HCPCS: 71260; Q9967

== ENCOUNTER → 2018-09-14 | Outpatient (CLI) | payer MEDICARE, BC ==
--- NOTE | 2018-09-14 20:52 | PN ---
PROGRESS NOTE DATE OF SERVICE: 09/14/2018 The patient is a 68-year-old gentleman who has been followed in Sleep Center for treatment of obstructive sleep apnea-hypopnea syndrome. Recently the patient had a sleep study, and now he is using his CPAP equipment every night for the whole night. The patient tried different styles of the nasal pillow mask, AirFit P10, then Peralta FX, but his preference is still AirFit P10, although this mask with usage may become loose, and that may be the reason for some leaking. Reading from his CPAP unit for the last 139 days showed usage for more than 4 hours for 130 days, which is 94% of the time, with the average time of usage 6 hours 43 minutes, which indicates very good compliance with treatment. CPAP pressure is 8 cm of water. Apnea-hypopnea index is 7.9. Leak is 29.6 L/minute, which is high because the patient is using a nasal pillow mask. Sometimes the patient experiences a dry mouth, and he also may be experience some discomfort in his nose. [place] Sleepiness Scale today is 7, which is within normal range. MEDICATIONS: 1. Metformin. 2. Metoprolol. 3. Chromagen. 4. Aspirin. 5. Plavix. 6. Lisinopril. 7. Nitroglycerin. PHYSICAL EXAMINATION: GENERAL: A pleasant patient in no distress. VITAL SIGNS: BP 167/87, HR 82, RR 16, weight 277.8 pounds, temperature 98.2, oxygen saturation at room air 96%. HEENT: PERRLA, EOMI. Evaluation of oropharynx showed tongue protrudes midline. Moderately low position of soft palate. NECK: Supple. No JVD. Thyroid is not palpable. LUNGS: Clear to percussion and to auscultation. Good air exchange. No wheezing or rhonchi. HEART: S1, S2. Irregular. ABDOMEN: Soft and nontender. Bowel sounds are present. No organomegaly. EXTREMITIES: No clubbing or cyanosis. TANNING DRUM OPERATOR: Awake, alert, and oriented X3. Cranial nerves 2 to 7 intact. There is no fasciculation or atrophy. noted. No focal deficits observed. IMPRESSION: 1. Obstructive sleep apnea-hypopnea syndrome. The patient demonstrated great compliance with treatment, benefitting from treatment. 2. Hypertension. 3. Coronary artery disease, status post stent insertion. 4. Atrial fibrillation. 5. Diabetes mellitus. 6. Hyperlipidemia. 7. History of pulmonary embolism in 2012. 8. Status post cholecystectomy. 9. Status post hernia repair. PLAN: 1. Patient will continue to use CPAP equipment every night for the whole night with the same level of pressure. 2. Prescription for chin strap. 3. Patient may need to adjust humidity in his CPAP unit. 4. Watching and losing weight. 5. Sleep hygiene with regular time in bed for at least 8 hours. 6. No driving if feeling any sleepiness. Thank you very much for allowing me to participate in the management of your patient. Sincerely, Jovanny Means MD, PhD, FAASM Diplomat of [place] Board of Medical Specialties [place] Board of Internal Medicine General Education Professor of [facility] [place] MMODL / JOSEPN: [id number] /
== END ==
LOC: SLEEP 15:40
PROVIDERS: ATTEND Internal Medicine
DX: G47.33 Obstructive sleep apnea (adult) (pediatric) (principal); I10 Essential (primary) hypertension; I25.10 Atherosclerotic heart disease of native coronary artery without angina pectoris; I48.91 Unspecified atrial fibrillation; E11.9 Type 2 diabetes mellitus without complications; E78.5 Hyperlipidemia, unspecified; Z86.711 Personal history of pulmonary embolism; Z90.49 Acquired absence of other specified parts of digestive tract; Z98.890 Other specified postprocedural states; Z99.89 Dependence on other enabling machines and devices; Z79.899 Other long term (current) drug therapy; Z79.84 Long term (current) use of oral hypoglycemic drugs; Z79.82 Long term (current) use of aspirin; Z79.02 Long term (current) use of antithrombotics/antiplatelets

== ENCOUNTER → 2018-10-14 | Outpatient (CLI) | payer MEDICARE, BC | END | disposition home or self-care (01) | LOC: RADMRIMAIN 08:21 | PROVIDERS: ATTEND Internal Medicine | DX: Z53.9 Procedure and treatment not carried out, unspecified reason (principal) ==

== ENCOUNTER → 2018-10-16 | Outpatient (CLI) | payer MEDICARE, BC ==
--- NOTE | 2018-10-16 22:30 | MR ---
EXAMINATION TYPE: MR brain wo con DATE OF EXAM: 10/16/2018 COMPARISON: Prior MRI brain July 21, 2015. HISTORY: Memory loss TECHNIQUE: Multiplanar, multisequence imaging of the brain and brainstem is performed without IV cont rast. FINDINGS: Diffusion weighted images demonstrate no evidence of a recent infarct or other diffusion abnormality. There is no worrisome extra-axial fluid collection. Ventricular and sulcal prominence is redemonstrat ed. Foci of T2 hyperintensity throughout the white matter again seen with slight progression from jose or MRI. Midline structures demonstrate normal morphology. The craniocervical junction appears within normal limits. Normal vascular flow voids are present. The visualized sinuses are clear and the globes are i ntact. IMPRESSION: Redemonstration of mild generalized cerebral atrophy with mild to moderate chronic small vessel ischemic change some interval progression in the latter noted from prior.
== END | disposition home or self-care (01) ==
LOC: RADMRIMAIN 21:09
PROVIDERS: ATTEND Internal Medicine
DX: G31.9 Degenerative disease of nervous system, unspecified (principal); I67.82 Cerebral ischemia
CPT/HCPCS: 70551

== ENCOUNTER → 2018-11-06 | Outpatient (CLI) | payer MEDICARE, BC ==
[2018-11-06 17:42] LABS: LDL Cholesterol,Calculated 82.2 mg/dL (0.0-131.0); VLDL Calculation 31.8 mg/dL (5.00-40.00)
== END | disposition home or self-care (01) ==
LOC: LABWHC1 07:51
PROVIDERS: ATTEND Internal Medicine Interventional Cardiology
DX: E78.2 Mixed hyperlipidemia (principal)
CPT/HCPCS: 36415; 80061; 84450; 84460

== ENCOUNTER → 2019-03-15 | Outpatient (CLI) | payer MEDICARE, BC ==
--- NOTE | 2019-03-15 13:10 | SFUN ---
SLEEP CENTER FOLLOW UP NOTE DATE OF SERVICE: 03/15/2019 A 69-year-old gentleman who has been followed in the Sleep Center for treatment of obstructive sleep apnea-hypopnea syndrome. Patient continued to use his CPAP equipment every night for the whole night. Sleeps well with that. Does not have any problems related to mask fitting, pressure or humidification. [place] Sleepiness Scale today is 3 which is perfect. CURRENT MEDICATIONS: Metformin, metoprolol, warfarin, aspirin, Zetia, lisinopril, amlodipine, vitamin D, nitro-stat, magnesium, . PHYSICAL EXAM: Patient in no distress. BP 150/87, HR 82, RR 16, height 6, 4, weight 261.4. Patient lost weight since previous visit about 16 pounds but his weight is still slightly higher than during the titration. OROPHARYNX: Moderately low soft palate, Mallampati 3. NECK: Supple, no JVD. Thyroid is not palpable. LUNGS: Clear to percussion and to auscultation. Good air exchange. No wheezing or rhonchi. HEART: S1, S2 regular. No murmurs, gallops, or rubs. ABDOMEN: Soft and nontender. Bowel sounds are present. No organomegaly appreciated. EXTREMITIES: No clubbing or cyanosis. KEEPER HEAD: Awake, alert, and oriented X3. Cranial nerves 2 to 7 intact. There is no fasciculation or atrophy. noted. No focal deficits observed. I checked patient's CPAP unit. CPAP pressure is 8 cm of water. Usage is 100% of time more than 4 hours with average usage 7.2 hours per night. Leak is 13 L/minute, which is acceptable. Apnea-hypopnea index for the last night only 1.7, but average for the last month, 6.6. Average for the last 6 months is 7.5, which is slightly above our preference. IMPRESSION: 1. Obstructive sleep apnea-hypopnea syndrome. Patient demonstrated great compliance with treatment benefitting from treatment. 2. Coronary artery disease, status post stent insertion. 3. History of atrial fibrillation. 4. Hypertension. 5. Diabetes mellitus. 6. Hyperlipidemia. 7. History of pulmonary embolism in 2012. 8. Status post cholecystectomy. 9. Status post hernia repair. PLAN: 1. Patient will continue to use CPAP equipment every night for the whole night. 2. I will increase pressure to 9 cm of water. 3. Watching and losing weight. 4. Sleep hygiene with regular time in bed for at least 7-1/2 - 8 hours. 5. No driving if feeling sleepiness. Thank you very much for allowing me to participate in the management of your patient. Sincerely, Jovanny Means MD, PhD, FAASM Diplomat of [place] Board of Medical Specialties [place] Board of Internal Medicine Scientist/Engineer of [employer] [facility] [place] MMODL / JOSEPN: [id number] /
== END | disposition home or self-care (01) ==
LOC: SLEEP 10:30
PROVIDERS: ATTEND Internal Medicine
DX: G47.33 Obstructive sleep apnea (adult) (pediatric) (principal); I25.10 Atherosclerotic heart disease of native coronary artery without angina pectoris; I10 Essential (primary) hypertension; E11.9 Type 2 diabetes mellitus without complications; E78.5 Hyperlipidemia, unspecified; Z98.890 Other specified postprocedural states; Z90.49 Acquired absence of other specified parts of digestive tract; Z99.89 Dependence on other enabling machines and devices; Z95.5 Presence of coronary angioplasty implant and graft; Z86.79 Personal history of other diseases of the circulatory system; Z87.09 Personal history of other diseases of the respiratory system; Z79.84 Long term (current) use of oral hypoglycemic drugs; Z79.82 Long term (current) use of aspirin; Z79.01 Long term (current) use of anticoagulants; Z79.899 Other long term (current) drug therapy

== ENCOUNTER → 2019-11-08 | Outpatient (CLI) | payer MEDICARE, BC ==
--- NOTE | 2019-11-08 21:57 | SFUN ---
SLEEP CENTER FOLLOW UP NOTE DATE OF SERVICE: 11/08/2019 This patient is a 69-year-old gentleman who has been followed in Sleep Center for treatment of obstructive sleep apnea-hypopnea syndrome. The patient continued to use his CPAP equipment. For the last month he did not use it every night because he had shoulder surgery and was uncomfortable sleeping with the machine. [place] Sleepiness Scale today is 3, which is normal. I checked his CPAP unit. CPAP pressure is 9 cm of water. Usage for the last month is 9/30 nights and for the last 6 months 148/180 nights, which is good compliance for the last 6 months. Average usage is 7.1 hours. For the last month his leak was 24 L/minute, which is in normal range; for the last 6 months, 31 L/minute, which is slightly high. Apnea-hypopnea index reading for the last month 8.1 and for the last 6 months 5.8. MEDICATIONS: Metformin, metoprolol, warfarin, aspirin, Zetia, lisinopril, amlodipine, vitamin D, Nitrostat. PHYSICAL EXAMINATION: GENERAL: A pleasant patient without any distress. HEENT: PERRLA, EOMI, evaluation of oropharynx showed tongue protrudes midline. NECK: Supple, no JVD. Thyroid is not palpable. LUNGS: Clear to percussion and to auscultation. Good air exchange. No wheezing or rhonchi. HEART: S1, S2 irregular. ABDOMEN: Soft and nontender. Bowel sounds are present. No organomegaly appreciated. EXTREMITIES: No clubbing or cyanosis. TITLE CURATOR: Awake, alert, and oriented X3. Cranial nerves 2 to 7 intact. There is no fasciculation or atrophy. noted. No focal deficits observed. IMPRESSION: 1. Obstructive sleep apnea-hypopnea syndrome. The patient is benefitting from CPAP therapy and demonstrated good compliance for 6 months. Apnea-hypopnea index was slightly increased, in the mild range. 2. Hypertension. 3. Coronary artery disease. 4. History of atrial fibrillation. 5. Diabetes mellitus. 6. Status post left shoulder surgery about one month ago. 7. History of pulmonary embolism in 2012. 8. Status post cholecystectomy. PLAN: I increased pressure in the CPAP unit up to 10 cm of water. Discussed recommendations with the patient in detail. 1. Patient will continue to use PAP equipment every night for the whole night. 2. Sleep hygiene with regular time in bed for at least 7-1/2 to 8 hours. 3. Precautions related to driving. No driving if feeling sleepiness. 4. I will maintain all necessary prescription for PAP supplies including mask, tube, filters. 5. Watching weight. 6. No driving if feeling sleepiness. 7. Follow-up visit in 6 months or earlier if patient has any problems. Thank you very much for allowing me to participate in the management of your patient. Sincerely, Jovanny Means MD, PhD, FAASM Diplomat of [place] Board of Medical Specialties [place] Board of Internal Medicine Frame Expander of [facility] [place] MMODL / IJN: [id number] /
== END | disposition home or self-care (01) ==
LOC: SLEEP 10:34
PROVIDERS: ATTEND Internal Medicine
DX: G47.33 Obstructive sleep apnea (adult) (pediatric) (principal); I10 Essential (primary) hypertension; I25.10 Atherosclerotic heart disease of native coronary artery without angina pectoris; E11.9 Type 2 diabetes mellitus without complications; Z90.49 Acquired absence of other specified parts of digestive tract; Z86.711 Personal history of pulmonary embolism; Z99.89 Dependence on other enabling machines and devices; Z98.890 Other specified postprocedural states; Z86.79 Personal history of other diseases of the circulatory system

== ENCOUNTER → 2020-06-12 | Outpatient (CLI) | payer MEDICARE ==
--- NOTE | 2020-06-12 11:50 | SFUN ---
SLEEP CENTER FOLLOW UP NOTE DATE OF SERVICE: 06/12/2020 This 70-year-old gentleman has been followed in Sleep Center for treatment of obstructive sleep apnea-hypopnea syndrome. The patient continued to use CPAP equipment every night for the whole night. He complains that he feels discomfort in his throat and nose in the morning which goes away after he drinks and eat. He also has more discharges which he addressed to the sinuses issue. [place] Sleepiness Scale today is 7. I checked his CPAP unit CPAP pressure of 10 cm of water. Usage is 29 out of 30 nights for more than 4 hours. Average usage is 7.2 hours per night. Leak is 25 L/minute. Apnea-hypopnea index 5.3, which is borderline. MEDICATIONS: Amlodipine 5 mg once a day, warfarin 4 mg once a day, metoprolol 25 mg 3 times a day, lisinopril 20 mg once a day, metformin 500 mg 4 a day, pioglitazone 15 mg once a day, ezetimibe 10 mg once a day, vitamin D3, magnesium supplement, aspirin 81 mg once a day. PHYSICAL EXAMINATION: GENERAL: Patient in no distress. VITAL SIGNS: BP 138/82, HR 69, RR 12, height 6 feet 4 inches, weight 277.0, temperature 96.1, oxygen saturation at room air 99%. HEENT: PERRLA, EOMI. Oropharynx moderately low position of soft palate. Mallampati 3. NECK: Supple, no JVD. Thyroid is not palpable. LUNGS: Clear to percussion and to auscultation. Good air exchange. No wheezing or rhonchi. HEART: S1, S2 regular. No murmurs, gallops, or rubs. ABDOMEN: Soft and nontender. Bowel sounds are present. No organomegaly appreciated. EXTREMITIES: No clubbing or cyanosis. SOFTWARE PROJECT LEAD: Awake, alert, and oriented X3. Cranial nerves 2 to 7 intact. There is no fasciculation or atrophy. noted. No focal deficits observed. IMPRESSION: 1. Obstructive sleep apnea-hypopnea syndrome. Patient was 100% compliance with treatment, benefitting from treatment. 2. Patient referred discomfort in his nose and throat in the morning after using CPAP. 3. Hypertension. 4. Coronary artery disease. 5. History of atrial fibrillation. 6. Diabetes mellitus. 7. Status post left shoulder surgery in the middle 2019. 8. History of pulmonary embolism in 2013. 9. Status post cholecystectomy. PLAN: 1. Increase humidity in CPAP unit from 4 to 6. 2. We discussed in detail that patient has to replace water in the chamber every night and remove the water out which was left in the chamber in the morning to be sure that everything is dry. 3. I changed the CPAP pressure down to 8. 4. Patient will continue to use PAP equipment every night for the whole night. 5. Sleep hygiene with regular time in bed for at least 7-1/2 to 8 hours. 6. Precautions related to driving. No driving if feeling sleepiness. 7. I will maintain all necessary prescription for PAP supplies including mask, tube, filters. 8. Watching weight. 9. No driving if feeling sleepiness. 10.Follow-up visit in 6 months or earlier if patient has any problems. Thank you very much for allowing me to participate in management of your patient. Sincerely, Jovanny Means MD, PhD, FAASM Diplomat of [place] [employer] [place] [employer] Daily Sales Audit Clerk of [facility] MMODL / IJN: [id number] /
== END | disposition home or self-care (01) ==
LOC: SLEEP 09:55
PROVIDERS: ATTEND Internal Medicine
DX: G47.33 Obstructive sleep apnea (adult) (pediatric) (principal); I10 Essential (primary) hypertension; I25.10 Atherosclerotic heart disease of native coronary artery without angina pectoris; Z86.79 Personal history of other diseases of the circulatory system; Z98.890 Other specified postprocedural states; Z99.89 Dependence on other enabling machines and devices; Z79.899 Other long term (current) drug therapy; Z79.01 Long term (current) use of anticoagulants; Z79.82 Long term (current) use of aspirin; Z86.711 Personal history of pulmonary embolism; Z90.49 Acquired absence of other specified parts of digestive tract

== ENCOUNTER → 2021-01-15 | Outpatient (CLI) | payer MEDICARE ==
--- NOTE | 2021-01-15 14:26 | SFUN ---
SLEEP CENTER FOLLOW UP NOTE DATE OF SERVICE: 01/15/2021 This 70-year-old gentleman has been followed in Sleep Center for treatment of obstructive sleep apnea-hypopnea syndrome. The patient continues to use his CPAP equipment every night. Sometimes in the morning he feels that his nose is plugged up. [place] Sleepiness Scale today is 4, which is normal. I checked his CPAP unit. Pressure is 8 cm of water, usage 28/30 nights and /30 nights for more than 4 hours, with average 6.7 hours per night. Leak is 29 L/minute. Apnea- hypopnea index is slightly increased at 7.9. Humidity is at the level of 6. The patient is using a Peralta FX large nasal pillow mask. The machine does not have options for automatic adjustments of pressure. Possibly the machine is more than 5 years old. MEDICATIONS: 1. Metformin 500 mg 4 times a day. 2. Lisinopril 20 mg once a day. 3. Warfarin 4 mg once a day. 4. 10 mg once a day. 5. Amlodipine 5 mg once a day. 6. Pioglitazone 15 mg once a day. 7. Metoprolol 25 mg 3 times a day. 8. Aspirin 81 mg once a day. 9. Nitrostat as needed. PHYSICAL EXAMINATION: GENERAL: Pleasant patient in no distress. VITAL SIGNS: BP 167/103, HR 80, RR 15, height 6 feet 4 inches, weight 279.2, temperature 96.9, oxygen saturation at room air 97%. Body mass index 33.9. HEENT: PERRLA, EOMI, evaluation of oropharynx showed tongue protrudes midline. Moderately low position of soft palate; Mallampati III. NECK: Supple, no JVD. Thyroid is not palpable. LUNGS: Clear to percussion and to auscultation. Good air exchange. No wheezing or rhonchi. HEART: S1, S2 regular. No murmurs, gallops, or rubs. ABDOMEN: Soft and nontender. Bowel sounds are present. No organomegaly appreciated. EXTREMITIES: No clubbing or cyanosis. RAG INSPECTOR: Awake, alert, and oriented X3. Cranial nerves 2 to 7 intact. There is no fasciculation or atrophy. noted. No focal deficits observed. IMPRESSION: 1. Obstructive sleep apnea-hypopnea syndrome. Patient demonstrated good compliance with treatment, benefitting from treatment. Apnea-hypopnea index slightly increased. Patient's CPAP unit does not have options for automatic adjustments of the pressure. Patient has discomfort in the nose in the morning after using the machine with difficulties to breathe through the nose, plugging up nose. 2. Hypertension. 3. Coronary artery disease. 4. History of atrial fibrillation. 5. Diabetes mellitus. 6. Status post left shoulder surgery in the middle of 2019. 7. History of pulmonary embolism in 2012. 8. Status post cholecystectomy. PLAN: 1. Increase humidity in CPAP to 7. 2. I changed pressure down in the machine to 7.4 with a goal to make discomfort in the nose less. 3. Prescription for the automatic CPAP unit with range of the pressure 5 to 10. I believe that if the patient gets AutoPAP, he will be more comfortable using it, because pressure in the unit could be less or more, depending on his breathing during sleep. Possibly this will make his discomfort in the nose less. 4. Patient will continue to use PAP equipment every night for the whole night. 5. Sleep hygiene with regular time in bed for at least 7-1/2 to 8 hours. 6. Precautions related to driving. No driving if feeling sleepiness. 7. I will maintain all necessary prescription for PAP supplies including mask, tube, filters. 8. Watching weight. 9. Follow-up visit in 4 months or, if the patient gets a new machine, in 6 weeks. Thank you very much for allowing me to participate in the management of your patient. Sincerely, Jovanny Means MD, PhD, FAASM Diplomat of [place] [employer] Sleep Medicine Board of [place] [employer] Medicine Heel Cutter of [facility] MMODL / JOSEPN: [id number] /
== END ==
LOC: SLEEP 09:52
PROVIDERS: ATTEND Internal Medicine
DX: G47.33 Obstructive sleep apnea (adult) (pediatric) (principal); I10 Essential (primary) hypertension; I25.10 Atherosclerotic heart disease of native coronary artery without angina pectoris; I48.91 Unspecified atrial fibrillation; E11.9 Type 2 diabetes mellitus without complications; Z90.49 Acquired absence of other specified parts of digestive tract; Z99.89 Dependence on other enabling machines and devices; Z98.890 Other specified postprocedural states; Z86.711 Personal history of pulmonary embolism; Z79.82 Long term (current) use of aspirin; Z79.84 Long term (current) use of oral hypoglycemic drugs; Z79.01 Long term (current) use of anticoagulants; Z79.899 Other long term (current) drug therapy; Z88.9 Allergy status to unspecified drugs, medicaments and biological substances

== ENCOUNTER → 2021-03-10 | Outpatient (CLI) | payer MEDICARE ==
--- NOTE | 2021-03-10 08:26 | CT ---
EXAMINATION TYPE: CT cervical spine wo con DATE OF EXAM: 03/10/2021 COMPARISON: CT cervical spine March 03, 2015 HISTORY: Cervical disc degeneration; recent fall injury. CT DLP: 711.5 mGycm. Automated Exposure Control for Dose Reduction was Utilized. TECHNIQUE: CT scan of the cervical spine is obtained without contrast, axial images are obtained, sa gittal and coronal reformatted images are also reviewed. FINDINGS: Cervical spine is visualized in its entirety from C1 through upper thoracic levels, demonst rates stable and straightened alignment without evidence of acute fracture or dislocation. Preverteb ral soft tissue appears remain normal limits. The C1-C2 articulation is within normal limits on the coronal images. Vertebral body heights are preserved. Fbrinpou-qs-stbjjq disc space narrowing and spu rring C5-C6 and C6-C7 levels is more prominent from prior. Posterior spur disc complexes efface the a nterior thecal sac at these levels on sagittal and axial images. Review of axial images shows multilevel uncovertebral facet degenerative changes contributing to mult ilevel bilateral neural foraminal narrowing. Inhl-bu-pohueemz calcified plaque bilateral carotid bulb level is present.. Thyroid gland is felt within normal limits. Visualized lung apices are clear. Dep endent fluid in the left maxillary sinus is seen. There is moderate mucosal thickening with patchy se cretions in the anterior-inferior right maxillary sinus IMPRESSION: There is no acute fracture or dislocation evident in the cervical spine. Straightening of cervical spine with multilevel degenerative changes greatest at C5-C6 and C6-C7 level with interval degenerative progression from 2015 CT. Acute bilateral maxillary sinusitis noted. Correlate clinicall y.
== END | disposition home or self-care (01) ==
LOC: RADCTMAIN 07:29
PROVIDERS: ATTEND Family Medicine
DX: S19.9XXA Unspecified injury of neck, initial encounter (principal); W19.XXXA Unspecified fall, initial encounter; M47.812 Spondylosis without myelopathy or radiculopathy, cervical region
CPT/HCPCS: 72125

== ENCOUNTER → 2021-03-17 | Outpatient (CLI) | payer MEDICARE ==
[2021-03-17 18:49] LABS: ALT 32 U/L (10-49); AST 19 U/L (14-35); African American GFR (CKD) 82.7 (60.0-200.0); Albumin 4.3 g/dL (3.8-4.9); Alkaline Phosphatase 83 U/L (41-126); BUN/Creat Ratio 16.92 Ratio (12.00-20.00); Blood Urea Nitrogen 17.6 mg/dL (9.0-27.0); Calcium 9.5 mg/dL (8.7-10.3); Carbon Dioxide 28.9 mmol/L (20.0-27.5); Chloride 101 mmol/L (96-109); Chol/HDL Ratio 2.38 Ratio; Globulin 2.2 g/dL (1.6-3.3); Glucose 190 mg/dL (70-110); Non-African American GFR(CKD) 71.4 (60.0-200.0); Potassium 4.6 mmol/L (3.5-5.5); Sodium 138 mmol/L (135-145); Total Protein 6.5 g/dL (6.2-8.2)
== END | disposition home or self-care (01) ==
LOC: LABWHC1 11:04
PROVIDERS: ATTEND Internal Medicine Interventional Cardiology
DX: E78.2 Mixed hyperlipidemia (principal)
CPT/HCPCS: 36415; 80053; 80061

== ENCOUNTER → 2021-04-06 | Outpatient (CLI) | payer MEDICARE ==
--- NOTE | 2021-04-06 16:05 | MR ---
EXAMINATION TYPE: MR cervical spine wo con DATE OF EXAM: 04/06/2021 COMPARISON: 08/29/2015 MRI, 03/10/2021 CT scan HISTORY: Ataxia, lack of coordination, myelopathy TECHNIQUE: Multiplanar, multisequence images of the cervical spine were acquired without contrast. C2-C3: No evidence for degenerative disc disease. No disc bulge/herniation or protrusion. No Canal stenosis. Foramina are patent bilaterally. C3-C4: There is uncovertebral joint hypertrophy greater on the left with mild right and moderate left foraminal encroachment. There is facet arthropathy. Very minimal 6 central and left paracentral disc bulging but no canal stenosis or spinal cord contact. Similar to prior exam. C4-C5: Moderate to severe degenerative disc disease. Broad-based central disc bulging with effacement of thecal sac. Mild uncovertebral joint hypertrophy with mild left-sided foraminal encroachment and moderate right-sided foraminal encroachment. Mild facet arthropathy. No discrete herniation or canal stenosis C5-C6: Degenerative disc disease with uncovertebral joint hypertrophy and posterior disc protrusion g reater paracentrally to the left. Mild effacement of thecal sac. Moderate right and severe left chela inal encroachment with facet arthropathy. Findings are similar to prior exam. C6-C7: Severe degenerative disc disease with anterior spurring. Broad-based central and right paracen tral disc protrusion. Severe right-sided foraminal encroachment and moderate left foraminal encroachm ent with uncovertebral joint hypertrophy and facet arthropathy contributing. Finding is similar to th e prior exam. C7-T1: Degenerative disc disease but no disc herniation, canal stenosis, or foraminal encroachment. Incidental note is made of a chronic appearing mild superior endplate compression fracture of T2. Cervical segments are intact. There is normal alignment. Cervical spinal cord is of normal signal. Craniovertebral junction relationships are within normal limits. IMPRESSION: 1. Stable appearing multilevel severe degenerative disc disease most marked at C5-6 and C6-7. 2. Multilevel disc bulging or protrusions are stable from prior exam with effacement of thecal sac in multilevel foraminal encroachment as discussed above. 3. There is a mild superior endplate compression fracture T2 which likely is chronic correlate clinic ally. This is only partially included in the [id number] on the sagittal images.
== END | disposition home or self-care (01) ==
LOC: RADMRIMAIN 08:38
PROVIDERS: ATTEND Psychiatry & Neurology Neurology
DX: M50.023 Cervical disc disorder at C6-C7 level with myelopathy (principal); M47.12 Other spondylosis with myelopathy, cervical region
CPT/HCPCS: 72141

== ENCOUNTER → 2021-06-25 | Outpatient (CLI) | payer MEDICARE ==
--- NOTE | 2021-06-25 21:31 | SFUN ---
SLEEP CENTER FOLLOW UP NOTE DATE OF SERVICE: 06/25/2021 This 71-year-old gentleman has been followed in Sleep Center for treatment of obstructive sleep apnea-hypopnea syndrome. The patient continues to use his CPAP equipment every night, continues to have episodes of vertigo. [place] Sleepiness Scale today is 3, which is totally normal. I checked his CPAP unit. Pressure is 7.4 cm of water, usage 30/30 nights for more than 4 hours, average 6.8 hours per night. Leak is 26 L/minute. Apnea-hypopnea index is 9.5, which is increased compared to the previous visit, when it was 7.9. Sometimes the machine is noisy. MEDICATIONS: 1. Metformin 500 mg four times a day. 2. Lisinopril 20 mg once a day. 3. Warfarin 4 mg once a day. 4. Amlodipine 5 mg once a day. 5. Pioglitazone mg once a day. 6. Metoprolol 25 mg once a day. 7. Aspirin 81 mg once a day. PHYSICAL EXAMINATION: GENERAL: Pleasant patient in no distress. VITAL SIGNS: BP 190/94, HR about 100, RR 18, weight 273. The patient lost about 6 pounds since his previous visit. Height 6 feet 4 inches, temperature 97.1, oxygen saturation at room air 96%. HEENT: PERRLA, EOMI, evaluation of oropharynx showed tongue protrudes midline. Moderately low position of soft palate; Mallampati III. NECK: Supple, no JVD. Thyroid is not palpable. LUNGS: Clear to percussion and to auscultation. Good air exchange. No wheezing or rhonchi. HEART: S1, S2 irregular. ABDOMEN: Soft and nontender. Bowel sounds are present. No organomegaly appreciated. EXTREMITIES: No clubbing or cyanosis. CITY SANITARIAN: Awake, alert, and oriented X3. Cranial nerves 2 to 7 intact. There is no fasciculation or atrophy. noted. No focal deficits observed. IMPRESSION: 1. Obstructive sleep apnea-hypopnea syndrome. Patient demonstrated good compliance with treatment. Apnea-hypopnea index increased to 9.5. Machine creates external noise and does not have an option for automatic regulation of pressure. 2. Coronary artery disease. 3. Atrial fibrillation. 4. Hypertension. 5. Diabetes mellitus. 6. Status post left shoulder surgery in the middle 2019. 7. History of pulmonary embolism in 2013. 8. Status post cholecystectomy. 9. History of vestibulopathy. PLAN: 1. I changed the pressure to 8 cm of water. 2. Prescription to replace CPAP unit to automatic machine, range of pressure 5 to 10. 3. Sleep hygiene with regular time in bed for at least 8 hours. 4. No driving if feeling any sleepiness. 5. Follow-up visit after getting new CPAP unit. 6. I will maintain all necessary prescriptions for PAP supplies. Thank you very much for allowing me to participate in the management of your patient. Sincerely, Jovanny Means MD, PhD, FAASM Diplomat of [place] [employer] Sleep Medicine Board of [place] [employer] of Internal Medicine Pie Baker of [facility] [email or web address] / JOSEPN: [id number] /
== END ==
LOC: SLEEP 14:52
PROVIDERS: ATTEND Internal Medicine
DX: G47.33 Obstructive sleep apnea (adult) (pediatric) (principal); I25.10 Atherosclerotic heart disease of native coronary artery without angina pectoris; I48.91 Unspecified atrial fibrillation; I10 Essential (primary) hypertension; E11.9 Type 2 diabetes mellitus without complications; Z98.890 Other specified postprocedural states; Z90.49 Acquired absence of other specified parts of digestive tract; Z86.711 Personal history of pulmonary embolism; Z79.84 Long term (current) use of oral hypoglycemic drugs; Z79.01 Long term (current) use of anticoagulants; Z79.82 Long term (current) use of aspirin; Z99.89 Dependence on other enabling machines and devices

== ENCOUNTER → 2021-09-18 | Outpatient (CLI) | payer MEDICARE ==
--- NOTE | 2021-09-19 04:33 | MR ---
EXAMINATION TYPE: MR brain and iac wo/w con DATE OF EXAM: 09/18/2021 COMPARISON: 10/16/2018 HISTORY: [place] hearing loss CONTRAST: Standard multiplanar, multisequence MRI departmental protocol images were obtained without contrast a nd with 12 mL intravenous Gadavist gadolinium contrast. There is mild cerebral atrophy. Diffusion images show no sign of an acute infarct. There is no mass e ffect or midline shift. No sign of intracranial hemorrhage. images show multiple foci of increased s ignal in the periventricular white matter on T2 and FLAIR images. Total number is approximately 25 in these measure mostly less than 4 mm. The brainstem is intact. Cerebellum is intact. There is good visualization of the internal auditory canals. There is normal appearance of the acoust ic nerve and vestibular nerve. No cerebellopontine angle mass. Cerebellum is intact. No evidence of a mass involving the temporal bones. No evidence of mastoiditis. The contrast images show no pathologic enhancement. There is normal enhancement of the venous sinuses . IMPRESSION: Mild atrophy. Scattered numerous small white matter high signal foci likely related to microvascular ischemia or demyelinating disease. No change compared to old exam. No evidence of posterior fossa abnormality.
== END | disposition home or self-care (01) ==
LOC: RADMRIMAIN 07:32
PROVIDERS: ATTEND Psychiatry & Neurology Neurology
DX: G31.9 Degenerative disease of nervous system, unspecified (principal)
CPT/HCPCS: 70553; A9585

== ENCOUNTER → 2021-10-30 | Outpatient (CLI) | payer MEDICARE ==
[2021-10-30 23:17] LABS: Creatine Kinase 102 U/L (35-257)
[2021-11-02 11:05] LABS: Albumin 4.34 g/dL (3.80-4.90); Gamma Globulin 0.85 g/dL (0.70-1.50)
== END | disposition home or self-care (01) ==
LOC: LABWHC1 16:27
PROVIDERS: ATTEND Psychiatry & Neurology Neurology
DX: G90.09 Other idiopathic peripheral autonomic neuropathy (principal)
CPT/HCPCS: 36415; 82550; 82607; 83036; 84165; 85652; 86618

== ENCOUNTER → 2021-11-05 | Outpatient (CLI) | payer MEDICARE ==
--- NOTE | 2021-11-06 04:12 | MR ---
EXAMINATION TYPE: MR lumbar spine wo con DATE OF EXAM: 11/05/2021 COMPARISON: None HISTORY: Spinal stenosis, numbness and weakness in legs, balance is off Multiplanar multi echo imaging of the lumbar spine with no contrast. Lumbar vertebrae have fairly normal spacing and alignment. Disc spaces are well-maintained for the pa tient's age. There is a small posterior disc bulge at L4-5. There is developmentally adequate spinal canal. No spinal stenosis. Facet joints are intact. There is no lumbar paraspinal mass. No compressio n fracture. The upper sacroiliac joints appear intact. The neural foramina are widely patent. IMPRESSION: There are small posterior disc bulge at L4-5. No spinal stenosis. No lumbar disc herniation. No fract ure.
== END | disposition home or self-care (01) ==
LOC: RADMRIMAIN 17:18
PROVIDERS: ATTEND Psychiatry & Neurology Neurology
DX: M51.26 Other intervertebral disc displacement, lumbar region (principal); M48.061 Spinal stenosis, lumbar region without neurogenic claudication
CPT/HCPCS: 72148

== ENCOUNTER → 2021-12-24 | Outpatient (CLI) | payer MEDICARE ==
--- NOTE | 2021-12-24 15:13 | P.PN ---
Subjective DATE: 12/24/2021 FOLLOW UP VISIT. Patient with obstructive sleep apnea hypopnea syndrome return to sleep center for follow-up visit. Patient received new CPAP unit and today his first visit after treatment with new CPAP unit was started. Patient was able to use PAP equipment every night for the whole night. The patient does not have significant problems with the mask, PAP pressure and humidification. [place] sleepiness scale is 7, which is normal. I checked information from PAP unit. PAP unit pressure 5-10, average 9.6 cm H2O. Usage is 80 % for more then 4 hours, average 6.5 hours per night. Leak is 35.3 l/m, which is slightly increased. Apnea Hypopnea Index is 8.1, slightly increased. MEDICATIONS:1. Metformin 500 mg 4 tablets a day 2. Lisinopril 20 mg once a day 3. Eliquis 5 mg twice a day 4. Amlodipine 5 mg once a day 5. Ezetimibe 5 mg once a day 6. [id number] mg once a day 7. Metoprolol 25 mg 3 times a day 8. Nitrostat as needed During physical exam: GENERAL: A pleasant patient without any distress. VITAL SIGNS: BP 156/82, HR 73, RR 16 , weight 258, temperature 97.0, oxygen saturation at room air 100% . HEENT: PERRLA, EOMI.low position of soft palate, Mallapati 3 . NECK: Supple. No JVD. LUNGS: Clear to percussion and to auscultation. Good air exchange. No wheezing or rhonchi. HEART: S1, S2 regular. ABDOMEN: Soft and nontender. Slightly obese EXTREMITIES: No clubbing or cyanosis. ELECTRONIC CALIBRATION TECHNICIAN: Awake, alert, and oriented x3. No focal deficit. Impressions: 1. Obstructive sleep apnea-hypopnea syndrome. Patient demonstrated great compliance with treatment, benefiting from treatment. 2. Coronary artery disease. 3. Arterial fibrillation. 4. Hypertension. 5. Diabetes mellitus. 6. ALLERGIC rhinitis. 7. History of pulmonary embolism in 2012. 8. History vestibulopathy. 9. Status post left shoulder surgery in the middle of 2019. Plan: 1. Continue using PAP equipment every night for the whole night. 2. To change air filter at least 1-2 times per month. 3. PAP unit should stay lower then position of the head. 4. Advised patient to remove all remaining water from humidifier canister daily and make it dry after each usage. Refill canister with fresh distilled water before each usage. 5. Sleep hygiene with regular time in bed for at least 8 hours. 6. Precautions related to driving. No driving if feel any sleepiness. 7. I will maintain prescription for PAP supplies including mask, tube, filters. 8. Follow up visit in 6 months or earlier if patient has any problems. 9. Watching weight. Thank you very much for allowing me to participate in the management of your patient. Jovanny Means MD, PhD, FAASM. Diplomat of [place] [employer], Sleep Medicine Board by [place] [employer] Gallery Host of [facility] [place]
== END ==
LOC: SLEEP 14:17
PROVIDERS: ATTEND Internal Medicine
DX: G47.33 Obstructive sleep apnea (adult) (pediatric) (principal); I25.10 Atherosclerotic heart disease of native coronary artery without angina pectoris; I48.91 Unspecified atrial fibrillation; I10 Essential (primary) hypertension; E11.9 Type 2 diabetes mellitus without complications; Z86.711 Personal history of pulmonary embolism; J30.9 Allergic rhinitis, unspecified; Z99.89 Dependence on other enabling machines and devices; Z79.84 Long term (current) use of oral hypoglycemic drugs; Z79.01 Long term (current) use of anticoagulants; Z88.8 Allergy status to other drugs, medicaments and biological substances

== ENCOUNTER → 2022-04-21 | Outpatient (CLI) | payer MEDICARE ==
--- NOTE | 2022-04-21 13:41 | US ---
EXAMINATION TYPE: US carotid duplex BILAT DATE OF EXAM: 04/21/2022 COMPARISON: NONE CLINICAL HISTORY: Carotid bruit TECHNIQUE: Carotid duplex ultrasound examination. Indirect Doppler criteria was utilized. FINDINGS: EXAM MEASUREMENTS: RIGHT: Peak Systolic Velocity (PSV) cm/sec ----- Right CCA: 85.3 ----- Right ICA: 69.5 ----- Right ECA: 83.5 ICA/CCA ratio: 0.81 RIGHT: End Diastole cm/sec ----- Right CCA: 10.7 ----- Right ICA: 10.8 ----- Right ECA: 8.9 LEFT: Peak Systolic Velocity (PSV) cm/sec ----- Left CCA: 66.0 ----- Left ICA: 78.3 ----- Left ECA: 119 ICA/CCA ratio: 1.2 LEFT: End Diastole cm/sec ----- Left CCA: 8.9 ----- Left ICA: 26.3 ----- Left ECA: 0.8 VERTEBRALS (direction of flow): Right Vertebral: Antegrade Left Vertebral: Antegrade TAILOR GARMENT FITTER NOTES: Mild plaque visualized in the left ICA proximal. No significant velocity elevation s IMPRESSION: Less than 50% stenosis of the bilateral carotid bifurcations. Criteria for Assigning % of Stenosis / Diameter reduction (Estimation based on the indirect measurements of the internal carotid artery velocities (ICA PSV). 1. Normal (no stenosis)=ICA PSV < 125 cm/s: ratio < 2.0: ICA EDV<40 cm/s. 2. Less than 50% stenosis=ICA PSV < 125 cm/s: ratio < 2.0: ICA EDV<40 cm/s. 3. 50 to 69% stenosis=ICA PSV of 125 to 230 cm/s: ration 2.0 ? 4.0: ICA EDV 40-100 cm/s. 4. Greater than 70% stenosis to near occlusion= ICA PSV > 230 cm/s: ratio > 4.0: ICA EDV > 100 cm/s. 5. Near occlusion= ICA PSV velocities may be low or undetectable: variable ratio and ICA EDV. 6. Total occlusion=unable to detect flow.
== END | disposition home or self-care (01) ==
LOC: RADUSWWP 12:58
PROVIDERS: ATTEND Family Medicine
DX: I65.23 Occlusion and stenosis of bilateral carotid arteries (principal)
CPT/HCPCS: 93880

== ENCOUNTER → 2022-06-23 | Outpatient (CLI) | payer MEDICARE ==
--- NOTE | 2022-07-07 13:43 | P.PN ---
Subjective DATE: 06/23/2022 FOLLOW UP VISIT. Patient with obstructive sleep apnea hypopnea syndrome return to sleep center for follow-up visit. Information from previous visit have been reviewed. Patient is using PAP equipment every night for the whole night, getting PAP supplies in time. The patient does not have significant problems with the mask, PAP unit and humidification. [place] sleepiness scale is 5, which is normal. I checked information from PAP unit and explained it to the patient in details. PAP unit pressure 5-11, average 9.9 cm H2O. Usage is 93 % for more then 4 hours, average 6.3 hours per night. Leak is 25.5 l/m, which is in acceptable range. Apnea Hypopnea Index is 3.9, which is normal. MEDICATIONS:1. Metformin 1000 mg twice a day 2. Eliquis 5 mg twice a day 3. Amlodipine 10 mg once a day 4. Metoprolol 50 mg once a day 5. Ezetimibe 10 mg once a day During physical exam: GENERAL: A pleasant patient without any distress. VITAL SIGNS: BP 174/88, HR 82, RR 18, weight 249.6, temperature 98.2, oxygen saturation at room air 98 % . HEENT: PERRLA, EOMI.low position of soft palate, Mallapati 3. NECK: Supple. No JVD. LUNGS: Clear to percussion and to auscultation. Good air exchange. No wheezing or rhonchi. HEART: S1, S2 regular. ABDOMEN: Soft and nontender. Slightly obese EXTREMITIES: No clubbing or cyanosis. SHOW HOST/HOSTESS: Awake, alert, and oriented x3. No focal deficit. Impressions: 1. Obstructive sleep apnea-hypopnea syndrome. Patient demonstrated great compliance with treatment, benefiting from treatment. 2. Atrial fibrillation. 3. Coronary artery disease. 4. diabetes mellitus. 5. Hypertension. 6. ALLERGIC rhinitis. 7. History of vestibular opacity. 8. History of pulmonary embolism in 2012. 9. Status post left shoulder surgery in the middle of 2019. Plan: 1. Continue using PAP equipment every night for the whole night. 2. To change air filter at least 1-2 times per month. 3. PAP unit should stay lower then position of the head. 4. Advised patient to remove all remaining water from humidifier canister daily and make it dry after each usage. Refill canister with fresh distilled water before each usage. 5. Sleep hygiene with regular time in bed for at least 8 hours. 6. Precautions related to driving. No driving if feel any sleepiness. 7. I will maintain prescription for PAP supplies including mask, tube, filters. 8. Watching and losing weight. 9. Follow up visit in 6 months or earlier if patient has any problems. Thank you very much for allowing me to participate in the management of your patient. Jovanny Means MD, PhD, FAASM. Diplomat of [place] [employer], Sleep Medicine Board by [place] [employer] Bone Char Operator of [facility] [place]
== END ==
LOC: SLEEP 13:31
PROVIDERS: ATTEND Internal Medicine
DX: G47.33 Obstructive sleep apnea (adult) (pediatric) (principal); I48.91 Unspecified atrial fibrillation; I25.10 Atherosclerotic heart disease of native coronary artery without angina pectoris; E11.9 Type 2 diabetes mellitus without complications; I10 Essential (primary) hypertension; J30.9 Allergic rhinitis, unspecified; Z79.84 Long term (current) use of oral hypoglycemic drugs; Z79.01 Long term (current) use of anticoagulants; Z79.899 Other long term (current) drug therapy; Z86.711 Personal history of pulmonary embolism; Z96.612 Presence of left artificial shoulder joint; Z86.69 Personal history of other diseases of the nervous system and sense organs; Z99.89 Dependence on other enabling machines and devices; Z88.8 Allergy status to other drugs, medicaments and biological substances
CPT/HCPCS: 99212

== ENCOUNTER → 2022-12-20 | Outpatient (CLI) | payer MEDICARE ==
[2022-12-20 16:27] LABS: ALT 24 U/L (10-49); AST 24 U/L (14-35); Chol/HDL Ratio 2.25 Ratio; LDL Cholesterol,Calculated 87.4 mg/dL (0.0-131.0); VLDL Calculation 15.32 mg/dL (5.00-40.00)
== END | disposition home or self-care (01) ==
LOC: LABWHC1 09:13
PROVIDERS: ATTEND Internal Medicine Interventional Cardiology
DX: E78.2 Mixed hyperlipidemia (principal)
CPT/HCPCS: 36415; 80061; 84450; 84460

== ENCOUNTER → 2023-01-19 | Outpatient (CLI) | payer MEDICARE ==
--- NOTE | 2023-01-19 11:15 | P.PN ---
Subjective DATE: 01/19/2023 FOLLOW UP VISIT. Patient with obstructive sleep apnea hypopnea syndrome return to sleep center for follow-up visit. Information from previous visit have been reviewed. Patient is using PAP equipment every night for the whole night, getting PAP supplies in time. Patient feels some discomfort in the nose in the morning after using CPAP equipment. [place] sleepiness scale is 4, which is normal. I checked information from PAP unit. PAP unit pressure 5-11, average 9.9 cm H2O. Usage is 80 % for more then 4 hours, average 6.5 hours per night. Leak is 24 l/m, which is in acceptable range. Apnea Hypopnea Index is 4.7, which is normal. MEDICATIONS:1. Metformin 1000 mg twice a day 2. Metoprolol 10 mg once a day 3. Aspirin 81 mg once a day 4. Amiodarone 20 mg once a day 5. Eliquis 5 milligrams once a day 6. Ezetimibe 10 mg once a day 7. Nitro During physical exam: GENERAL: A pleasant patient without any distress. VITAL SIGNS: BP 167/99, HR 73, RR 16 , weight 241.8, temperature 97.5, oxygen saturation at room air 99 % . HEENT: PERRLA, EOMI.low position of soft palate, Mallapati 3 . NECK: Supple. No JVD. LUNGS: Clear to percussion and to auscultation. Good air exchange. No wheezing or rhonchi. HEART: S1, S2 regular. ABDOMEN: Soft and nontender.[] EXTREMITIES: No clubbing or cyanosis. HEATING OPERATORS ENGINEER: Awake, alert, and oriented x3. No focal deficit. Impressions: 1. Obstructive sleep apnea-hypopnea syndrome. Patient demonstrated good compliance with treatment, benefiting from treatment. 2. History of atrial fibrillation. 3. Coronary artery disease. 4. Hypertension. 5. Diabetes mellitus. 6. ALLERGIC rhinitis. 7. History of pulmonary embolism in 2012. 8. Status post left shoulder surgery in 2019. I slightly decreased level of pressure because of nasal discomfort to the range 5-10 cm of water. I teach patient how to adjust humidity in CPAP unit. Level of humidity was changed from 4 down to 3 by patient decision. Plan: 1. Continue using PAP equipment every night for the whole night. 2. To change air filter at least 1-2 times per month. 3. PAP unit should stay lower then position of the head. 4. Advised patient to remove all remaining water from humidifier canister daily and make it dry after each usage. Refill canister with fresh distilled water before each usage. 5. Sleep hygiene with regular time in bed for at least 8 hours. 6. Precautions related to driving. No driving if feel any sleepiness. 7. I will maintain prescription for PAP supplies including mask, tube, filters. 8. Follow up visit in 6 months or earlier if patient has any problems. 9. Watching weight. Thank you very much for allowing me to participate in the management of your patient. Jovanny Means MD, PhD, FAASM. Diplomat of [place] [employer], Sleep Medicine Board by [place] [facility] [place]
== END ==
LOC: 3 N SLEEP 10:16
PROVIDERS: ATTEND Internal Medicine
DX: G47.33 Obstructive sleep apnea (adult) (pediatric) (principal); I48.91 Unspecified atrial fibrillation; I25.10 Atherosclerotic heart disease of native coronary artery without angina pectoris; I10 Essential (primary) hypertension; E11.9 Type 2 diabetes mellitus without complications; J30.9 Allergic rhinitis, unspecified; Z86.711 Personal history of pulmonary embolism; Z79.899 Other long term (current) drug therapy; Z79.84 Long term (current) use of oral hypoglycemic drugs; Z79.01 Long term (current) use of anticoagulants; Z99.89 Dependence on other enabling machines and devices; Z88.8 Allergy status to other drugs, medicaments and biological substances; Z98.890 Other specified postprocedural states
CPT/HCPCS: 99212

== ENCOUNTER → 2023-07-18 | Outpatient (CLI) | payer MEDICARE ==
[2023-07-18 11:09] LABS: ALT 23 U/L (10-49); AST 19 U/L (14-35); Albumin 4.5 g/dL (3.8-4.9); Albumin/Globulin Ratio 1.88 Ratio (1.60-3.17); Alkaline Phosphatase 68 U/L (41-126); BUN/Creat Ratio 11.15 Ratio (12.00-20.00); Blood Urea Nitrogen 14.5 mg/dL (9.0-27.0); Carbon Dioxide 28.1 mmol/L (21.6-31.8); Chloride 104 mmol/L (96-109); Chol/HDL Ratio 2.32 Ratio; Globulin 2.4 g/dL (1.6-3.3); Glucose 158 mg/dL (70-110); LDL Cholesterol,Calculated 92.3 mg/dL (0.0-131.0); Potassium 4.2 mmol/L (3.5-5.5); Sodium 142 mmol/L (135-145); Total Bilirubin 1.4 mg/dL (0.3-1.2); Total Protein 6.9 g/dL (6.2-8.2); VLDL Calculation 18.22 mg/dL (5.00-40.00)
== END | disposition home or self-care (01) ==
LOC: LABWHC1 07:42
PROVIDERS: ATTEND Nurse Practitioner Adult Health
DX: I10 Essential (primary) hypertension (principal); E78.2 Mixed hyperlipidemia
CPT/HCPCS: 36415; 80053; 80061

== ENCOUNTER → 2023-09-07 | Outpatient (CLI) | payer MEDICARE ==
--- NOTE | 2023-09-07 15:53 | P.PROGSL ---
Subjective DATE: 09/07/2023 FOLLOW UP VISIT. Patient with obstructive sleep apnea hypopnea syndrome return to sleep center for follow-up visit. Information from previous visit have been reviewed. Patient is using PAP equipment every night for the whole night, getting PAP supplies in time. The patient does not have significant problems with the mask, PAP unit and humidification. [place] sleepiness scale is 4, which is normal. I checked information from PAP unit. PAP unit pressure 5-10, average 9.4 cm H2O. Usage is 90% and 77% for more then 4 hours, average 6 hours per night. Leak is 26.0 l/m, which is in acceptable range. Apnea Hypopnea Index is 5.6, which is borderline. MEDICATIONS: Please see below During physical exam: GENERAL: A pleasant patient without any distress. VITAL SIGNS: Please see below, weight is 246 pounds. HEENT: PERRLA, EOMI.low position of soft palate, Mallapati 3 . NECK: Supple. No JVD. LUNGS: Clear to percussion and to auscultation. Good air exchange. No wheezing or rhonchi. HEART: S1, S2 regular. ABDOMEN: Soft and nontender.[] EXTREMITIES: No clubbing or cyanosis. TELEPHONE DIRECTORY DELIVERER: Awake, alert, and oriented x3. No focal deficit. Impressions: 1. Obstructive sleep apnea-hypopnea syndrome. Patient demonstrated good compliance with treatment, benefiting from treatment. 2. Coronary artery disease. 3. History of atrial fibrillation. 4. Hypertension. 5. Diabetes mellitus. 6. Allergic rhinitis. 7. History of pulmonary embolism in 2012. 8. Status post left shoulder surgery in 2019. Plan: 1. Continue using PAP equipment every night for the whole night. 2. To change air filter at least 1-2 times per month. 3. PAP unit should stay lower then position of the head. 4. Advised patient to remove all remaining water from humidifier canister daily and make it dry after each usage. Refill canister with fresh distilled water before each usage. 5. Sleep hygiene with regular time in bed for at least 8 hours. 6. Precautions related to driving. No driving if feel any sleepiness. 7. I will maintain prescription for PAP supplies including mask, tube, filters. 8. Watching weight. 9. Follow up visit in 6 months or earlier if patient has any problems. Thank you very much for allowing me to participate in the management of your patient. Jovanny Means MD, PhD, FAASM. Diplomat of [employer], Sleep Medicine Board by [employer] [facility] [place] Objective - Vital Signs Vital Signs: Intake & Output 09/06/23 09/07/23 09/07/23 18:59 06:59 18:59 Weight 111.584 kg Home Medications: Home Medications Medication Instructions Recorded Confirmed Type Atorvastatin [Lipitor] 20 mg PO Q72H 10/19/13 06/30/17 History Metoprolol Tartrate [Lopressor] 25 mg PO AC-BID 10/19/13 09/07/23 History Warfarin [Coumadin] 2.5 mg PO SUTUTHFRSA 10/19/13 06/30/17 History Cholecalciferol [Vitamin D3 (25 2,000 unit PO DAILY 02/25/15 09/07/23 History Mcg = 1000 Iu)] Nitroglycerin Sl Tabs [Nitrostat] 0.4 mg SUBLINGUAL Q5M PRN 02/25/15 09/07/23 History Pioglitazone HCl 15 mg PO DAILY 02/25/15 06/30/17 History metFORMIN HCL [Metformin HCl ER] 500 mg PO AC-TID 03/03/15 06/30/17 History Aspirin 81 mg PO DAILY #0 03/05/15 09/07/23 Rx Warfarin [Coumadin] 5 mg PO MOWE 01/28/16 06/30/17 History Famotidine 40 mg PO DAILY 01/06/17 06/30/17 History Magnesium Oxide [Mag-Ox] 400 mg PO DAILY 01/06/17 09/07/23 History Loratadine [Claritin] 10 mg PO DAILY 06/30/17 06/30/17 History lisinopriL [Prinivil] 20 mg PO DAILY 06/30/17 06/30/17 History Oseltamivir [Tamiflu] 75 mg PO Q12HR #10 cap 07/03/17 Rx Apixaban [Eliquis] 5 mg PO BID 09/07/23 09/07/23 History Cyanocobalamin (Vitamin B-12) 1,000 mcg PO DAILY 09/07/23 09/07/23 History [Vitamin B-12] Ezetimibe [Zetia] 10 mg PO DAILY 09/07/23 09/07/23 History amLODIPine BESYLATE/BENAZEPRIL 1 cap PO DAILY 09/07/23 09/07/23 History [amLODIPine BESYLATE/BENAZEPRIL 5-20 mg]
== END ==
LOC: 3 N SLEEP 15:09
PROVIDERS: ATTEND Internal Medicine
DX: G47.33 Obstructive sleep apnea (adult) (pediatric) (principal); I25.10 Atherosclerotic heart disease of native coronary artery without angina pectoris; I10 Essential (primary) hypertension; E11.9 Type 2 diabetes mellitus without complications; J30.9 Allergic rhinitis, unspecified; I48.91 Unspecified atrial fibrillation; Z99.89 Dependence on other enabling machines and devices; Z86.711 Personal history of pulmonary embolism; Z98.890 Other specified postprocedural states; Z79.01 Long term (current) use of anticoagulants; Z79.899 Other long term (current) drug therapy; Z79.84 Long term (current) use of oral hypoglycemic drugs; Z88.8 Allergy status to other drugs, medicaments and biological substances
CPT/HCPCS: 99212

== ENCOUNTER → 2023-10-07 | Outpatient (CLI) | payer MEDICARE ==
[2023-10-07 18:27] LABS: BUN/Creat Ratio 19.46 Ratio (12.00-20.00); Blood Urea Nitrogen 25.3 mg/dL (9.0-27.0); Calcium 9.8 mg/dL (8.7-10.3); Chloride 100 mmol/L (96-109); Glucose 163 mg/dL (70-110); Potassium 4.4 mmol/L (3.5-5.5); Sodium 139 mmol/L (135-145)
== END | disposition home or self-care (01) ==
LOC: LABWHC1 08:23
PROVIDERS: ATTEND Internal Medicine Interventional Cardiology
DX: I10 Essential (primary) hypertension (principal)
CPT/HCPCS: 36415; 80048

== ENCOUNTER → 2024-01-10 | Outpatient (CLI) | payer MEDICARE ==
[2024-01-10 15:23] LABS: ALT 30 U/L (10-49); AST 23 U/L (14-35); Albumin 4.2 g/dL (3.8-4.9); Albumin/Globulin Ratio 1.91 Ratio (1.60-3.17); Alkaline Phosphatase 45 U/L (41-126); BUN/Creat Ratio 14.69 Ratio (12.00-20.00); Blood Urea Nitrogen 19.1 mg/dL (9.0-27.0); Calcium 9.5 mg/dL (8.7-10.3); Carbon Dioxide 29.9 mmol/L (21.6-31.8); Chloride 106 mmol/L (96-109); Chol/HDL Ratio 2.61 Ratio; Globulin 2.2 g/dL (1.6-3.3); Glucose 104 mg/dL (70-110); LDL Cholesterol,Calculated 93.2 mg/dL (0.0-131.0); Potassium 4.5 mmol/L (3.5-5.5); Sodium 143 mmol/L (135-145); Total Bilirubin 0.9 mg/dL (0.3-1.2); Total Protein 6.4 g/dL (6.2-8.2); VLDL Calculation 17.06 mg/dL (5.00-40.00)
== END | disposition home or self-care (01) ==
LOC: LABWHC1 11:50
PROVIDERS: ATTEND Internal Medicine Interventional Cardiology
DX: E78.2 Mixed hyperlipidemia (principal)
CPT/HCPCS: 36415; 80053; 80061

== ENCOUNTER → 2024-05-03 | Outpatient (CLI) | payer MEDICARE ==
[2024-05-03 15:57] VITALS: BP 189/108; PULSE 93; RESP 18; TEMP 97.3
--- NOTE | 2024-05-03 16:18 | P.PROGSL ---
Subjective DATE: 05/03/2024 FOLLOW UP VISIT. Patient with obstructive sleep apnea hypopnea syndrome return to sleep center for follow-up visit. Information from previous visit have been reviewed. Patient is using PAP equipment every night for the whole night, getting PAP supplies in time. The patient does not have significant problems with the mask, PAP unit and humidification. [place] sleepiness scale is 5, which is normal. I checked information from PAP unit. PAP unit pressure 5-10, average 9.6 cm H2O. Usage is 90% for more then 4 hours, average 5.75 hours per night. Leak is 20.3 l/m, which is in acceptable range. Apnea Hypopnea Index is 5.2, which is normal. MEDICATIONS have been reviewed, please see below. During physical exam: GENERAL: A pleasant patient without any distress. VITAL SIGNS: Please see below, weight is 269.0 lbs. HEENT: PERRLA, EOMI.low position of soft palate, Mallapati 3. NECK: Supple. No JVD. LUNGS: Clear to percussion and to auscultation. Good air exchange. No wheezing or rhonchi. HEART: S1, S2 irrregular. ABDOMEN: Soft and nontender.[] EXTREMITIES: No clubbing or cyanosis. BIOMEDICAL EQUIPMENT TECHNICIAN: Awake, alert, and oriented x3. No focal deficit. Impressions: 1. Obstructive sleep apnea-hypopnea syndrome. Patient demonstrated great compliance with treatment, benefiting from treatment. 2. Mild obesity, weight 269 pounds, BMI 33.4, patient increased weight on 23 pounds comparing with previous visit. 3. Coronary artery disease. 4. History of atrial fibrillation. 5. Hypertension. 6. Diabetes mellitus. 7. Allergic rhinitis. 8. Status post left shoulder surgery in 2019. 9. History of pulmonary embolism in 2012. Plan: 1. Continue using PAP equipment every night for the whole night. 2. Sleep hygiene with regular time in bed for at least 7.5-8 hours 3. PAP unit should stay lower then position of the head. 4. Advised patient to remove all remaining water from humidifier canister daily and make it dry after each usage. Refill canister with fresh distilled water before each usage. 5. Watching and losing weight. 6. Precautions related to driving. No driving if feel any sleepiness. 7. I will maintain prescription for PAP supplies including mask, tube, filters. 8. Follow up visit in 8 months or earlier if patient has any problems. Thank you very much for allowing me to participate in the management of your patient. Jovanny Means MD, PhD, FAASM. Diplomat of [place] [employer], Sleep Medicine Board by [employer] Filling Machine Tender [facility] [place] Objective - Vital Signs Vital Signs: Vital Signs Temp 97.3 F L 05/03/24 15:57 Pulse 93 05/03/24 15:57 Resp 18 05/03/24 15:57 BP 189/108 05/03/24 15:57 Pulse Ox 98 05/03/24 15:57 FiO2 Intake & Output 05/02/24 05/03/24 05/03/24 18:59 06:59 18:59 Weight 122.016 kg Home Medications: Home Medications Medication Instructions Recorded Confirmed Type Atorvastatin [Lipitor] 20 mg PO Q72H 10/19/13 06/30/17 History Metoprolol Tartrate [Lopressor] 25 mg PO AC-BID 10/19/13 09/07/23 History Warfarin [Coumadin] 2.5 mg PO SUTUTHFRSA 10/19/13 06/30/17 History Cholecalciferol [Vitamin D3 (25 2,000 unit PO DAILY 02/25/15 09/07/23 History Mcg = 1000 Iu)] Nitroglycerin Sl Tabs [Nitrostat] 0.4 mg SUBLINGUAL Q5M PRN 02/25/15 09/07/23 History Pioglitazone HCl 15 mg PO DAILY 02/25/15 06/30/17 History metFORMIN HCL [Metformin HCl ER] 500 mg PO AC-TID 03/03/15 06/30/17 History Aspirin 81 mg PO DAILY #0 03/05/15 09/07/23 Rx Warfarin [Coumadin] 5 mg PO MOWE 01/28/16 06/30/17 History Famotidine 40 mg PO DAILY 01/06/17 06/30/17 History Magnesium Oxide [Mag-Ox] 400 mg PO DAILY 01/06/17 09/07/23 History Loratadine [Claritin] 10 mg PO DAILY 06/30/17 06/30/17 History lisinopriL [Prinivil] 20 mg PO DAILY 06/30/17 06/30/17 History Oseltamivir [Tamiflu] 75 mg PO Q12HR #10 cap 07/03/17 Rx Apixaban [Eliquis] 5 mg PO BID 09/07/23 09/07/23 History Cyanocobalamin (Vitamin B-12) 1,000 mcg PO DAILY 09/07/23 09/07/23 History [Vitamin B-12] Ezetimibe [Zetia] 10 mg PO DAILY 09/07/23 09/07/23 History amLODIPine BESYLATE/BENAZEPRIL 1 cap PO DAILY 09/07/23 09/07/23 History [amLODIPine BESYLATE/BENAZEPRIL 5-20 mg]
== END ==
LOC: 3 N SLEEP 15:34
PROVIDERS: ATTEND Internal Medicine
DX: G47.33 Obstructive sleep apnea (adult) (pediatric) (principal); I25.10 Atherosclerotic heart disease of native coronary artery without angina pectoris; Z86.79 Personal history of other diseases of the circulatory system; I10 Essential (primary) hypertension; E11.9 Type 2 diabetes mellitus without complications; Z91.09 Other allergy status, other than to drugs and biological substances; Z47.31 Aftercare following explantation of shoulder joint prosthesis; Z86.73 Personal history of transient ischemic attack (TIA), and cerebral infarction without residual deficits; Z99.89 Dependence on other enabling machines and devices; Z88.8 Allergy status to other drugs, medicaments and biological substances
CPT/HCPCS: 99212

== ENCOUNTER → 2024-08-07 | Outpatient (CLI) | payer MEDICARE ==
[2024-08-07 19:59] LABS: ALT 34 U/L (10-49); AST 28 U/L (14-35); Albumin 4.2 g/dL (3.8-4.9); Albumin/Globulin Ratio 1.56 Ratio (1.60-3.17); Alkaline Phosphatase 60 U/L (41-126); BUN/Creat Ratio 12.29 Ratio (12.00-20.00); Blood Urea Nitrogen 17.2 mg/dL (9.0-27.0); Calcium 9.5 mg/dL (8.7-10.3); Carbon Dioxide 28.6 mmol/L (21.6-31.8); Chloride 99 mmol/L (96-109); Chol/HDL Ratio 2.74 Ratio; Globulin 2.7 g/dL (1.6-3.3); Glucose 160 mg/dL (70-110); LDL Cholesterol,Calculated 91.4 mg/dL (0.0-131.0); Potassium 4.1 mmol/L (3.5-5.5); Sodium 138 mmol/L (135-145); Total Bilirubin 1.2 mg/dL (0.3-1.2); Total Protein 6.9 g/dL (6.2-8.2); VLDL Calculation 15.28 mg/dL (5.00-40.00)
== END | disposition home or self-care (01) ==
LOC: LABWHC1 12:46
PROVIDERS: ATTEND Internal Medicine Interventional Cardiology
DX: E78.2 Mixed hyperlipidemia (principal)
CPT/HCPCS: 36415; 80053; 80061